=== PATIENT | female | born 1930 | race Caucasian/White ===

== ENCOUNTER 2018-04-27 11:57 | Inpatient (IN) ==
[2018-04-27 12:46] LABS: Basophils % 0.2 %; Eosinophils # 0.1 K/mcL (0.0-0.6); Eosinophils % 0.4 %; Hematocrit 35.8 % (35.3-44.9); Hemoglobin 11.7 g/dL (11.5-15.4); Immature Granulocytes % 0.4 % (0-4); Lymphocytes # 2.7 K/mcL (0.6-4.6); Lymphocytes % 19.9 %; Mean Corpuscular HGB Conc 32.7 g/dL (31.6-35.5); Mean Corpuscular Hemoglobin 30.2 pg (28.0-33.3); Mean Corpuscular Volume 92.5 fL (83.0-100.0); Mean Platelet Volume 11.4 fL (9.4-12.4); Monocytes # 1.4 K/mcL (0.0-1.3); Monocytes % 10.4 %; Neutrophils # 9.5 K/mcL (1.6-8.9); Platelet Count 373 K/mcL (140-400); Red Blood Count 3.87 M/mcL (3.82-4.97); Red Cell Distribution Width 14.6 % (11.5-14.5); Segmented Neutrophils % 68.7 %
[2018-04-27 12:47] LABS: Bilirubin,Urine Negative (Negative); Blood,Urine Small (Negative); Clarity,Urine Clear (Clear); Color,Urine Yellow (Yellow); Glucose,Urine (UA) Normal (Normal); Ketones,Urine Negative (Negative); Leukocyte Esterase,Urine Small (Negative); Nitrite,Urine Negative (Negative); PH,Urine 5.5 pH Units (5.0-8.0); Protein,Urine Negative (Neg-Trace); Specific Gravity,Urine 1.022 (1.010-1.025); Urobilinogen,Urine Normal (Normal)
[2018-04-27 12:53] LABS: INR 2.5; Prothrombin Time 27.2 Seconds (9.4-12.1)
[2018-04-27 12:53] LABS: Squamous Epithelial Cell,Urine Many per lpf (None-Few)
[2018-04-27 13:05] LABS: Potassium 4.6 mEq/L (3.5-5.1)
[2018-04-27 13:05] LABS: Bacteria,Urine Few per hpf (None-Few); Renal Epithelial Cells,Urine Few per hpf (None-Few); Transitional Epi Cells,Urine Few per hpf (None-Few)
[2018-04-27 13:06] LABS: Hyaline Casts,Urine Moderate per lpf (None-Few)
--- NOTE | 2018-04-27 13:17 | Emergency Department Note ---
Disposition Clinical Impression: Left hip pain, Intramuscular hematoma Disposition: Admitted As Inpatient Condition: Fair Referrals: Behzad Jurado MD [Primary Care Provider] - Forms: ED Satisfaction Letter Time of Disposition: 15:55 Fall HPI - General Chief Complaint: ED Fall Stated Complaint: Left Hip Pain Time Seen by Provider: 04/27/18 12:05 Source: EMS Mode of arrival: EMS Limitations: no limitations Nursing Notes Reviewed: Yes Vital Signs Reviewed: Yes - History of Present Illness HPI Narrative: Patient presents emergency room today by EMS for evaluation of left hip pain. Patient fell approximately one week ago and injured her left knee. Yesterday while she is walking going up and down stairs the patient started to have pain and discomfort in her left hip. She is on Coumadin secondary to other medical issues and does have bruising on her left buttock. She denies any other falls since the initial event. She has no other trauma or injury. Family says that she is acting appropriately and has not been complaining of anything other than the discomfort. Patient is otherwise stable they were just concerned because of the pain getting worse. Pt Subjective Complaint: fall Onset (ago): day(s) Fall From: standing Fall Witnessed: yes Place Fall Occurred: home Loss of Consciousness: none Prolonged Down Time?: no Symptoms Prior to Fall: none Context: tripped/slipped Location of injury: hip Location of injury - extremities: Left: knee Severity: mild Severity scale (1-10): 3 Quality: aching Associated symptoms (after fall): Reports: denies - Related Data Home Medications Medication Instructions Recorded Confirmed Albuterol Sulfate [Proair HFA] 2 puff IH Q4HR PRN 06/20/15 06/20/15 Aspirin Enteric Coated [Aspirin EC] 81 mg PO DAILY 06/20/15 06/20/15 Benzonatate 100 mg PO TID 06/20/15 06/20/15 Budesonide/Formoterol Fumarate 2 puff IH BID 06/20/15 06/20/15 [Symbicort 160-4.5 Mcg Inhaler] Ergocalciferol (VITAMIN D2) 50,000 unit PO QWEEK 06/20/15 06/20/15 [Drisdol] Fluticasone Propionate Nasal 2 spray NS AD 06/20/15 06/20/15 [Flonase] Furosemide [Lasix] 20 mg PO BID 06/20/15 06/20/15 Indomethacin 25 mg PO Q8H 06/20/15 06/20/15 Ipratropium/Albuterol Neb [Duoneb] 3 ml IH Q6HR 06/20/15 06/20/15 Lactose-Reduced Food [Ensure 237 ml PO BID 06/20/15 06/20/15 Liquid] Lisinopril [Zestril] 2.5 mg PO DAILY 06/20/15 06/20/15 Metoprolol [Lopressor] 25 mg PO BID 06/20/15 06/20/15 Roflumilast [Daliresp] 500 mcg PO DAILY 06/20/15 06/20/15 Sertraline HCl [Zoloft] 25 mg PO DAILY 06/20/15 06/20/15 Warfarin [Coumadin] 3 mg PO AD 06/20/15 06/20/15 Previous Rx's Medication Instructions Recorded HYDROcodone/Acet 5/325 mg [[place] 0.5 - 1 tab PO Q6H PRN #10 tab 06/04/17 5-325 mg] Ondansetron ODT [Zofran ODT] 4 mg SL Q8HR PRN #12 tab.rapdis 06/04/17 HYDROcodone/Acet 5/325 mg [[place] 1 tab PO Q6H PRN 3 Days #10 tab 04/18/18 5-325 mg] Allergies Allergy/AdvReac Type Severity Reaction Status Date / Time latex Allergy Rash Verified 06/19/15 22:45 Penicillins Allergy Hives Verified 06/19/15 14:31 All systems ED: reviewed and negative except as stated. Review of Systems: As Per HPI Constitutional: Denies: fever, chills, weakness Cardiovascular: Denies: chest pain, palpitations, dyspnea on exertion Respiratory: Denies: cough, dyspnea, wheezes Gastrointestinal: Denies: nausea, vomiting, diarrhea Genitourinary: Denies: urgency, dysuria, frequency Musculoskeletal: Denies: back pain, neck pain Integumentary: Reports: other. Denies: rash Neurological: Denies: headache Endocrine: Denies: fatigue Hematological/Lymphatic: Reports: easy bleeding, easy bruising Fall PMH - Past Medical History Medical history: Reports: arthritis, COPD, hypertension, other Surgical history: Reports: pacemaker/AICD Psychiatric history: Reports: no psych history ELEVATOR ADJUSTER history: Reports: no ELEVATOR ADJUSTER history - Social History Smoking Status: Unknown if ever smoked Alcohol use: Reports: none Drug use: Reports: none Physical Exam - General Limitations: no limitations General appearance: alert, in no apparent distress - Head Head exam: atraumatic, normocephalic, normal inspection - Eye Eye exam: Present: normal appearance, PERRL, EOMI - Neck Neck exam: Present: normal inspection, full ROM, trachea midline - Chest Chest inspection: Present: normal inspection, symmetric chest wall rise - Respiratory Respiratory exam: Present: normal lung sounds bilaterally - Cardiovascular Cardiovascular exam: Present: regular rate, normal rhythm, normal heart sounds - Abdominal Exam Abdominal exam: Present: soft, Non-Tender, normal bowel sounds. Absent: tenderness, distention, guarding, rebound, rigidity, Garcia's sign, Rovsing's sign, tenderness at McBurney's Point - Extremities Exam Extremities exam: Present: normal inspection, full ROM, tenderness, normal capillary refill. Absent: pedal edema - Expanded Lower Extremity Exam Hip/Pelvis exam: Present: normal inspection, full ROM - Back Exam Back exam: Present: normal inspection - Neurological Exam Neurological exam: Present: alert, oriented X3, CN II-XII intact - Skin Skin exam: Present: warm, dry, intact, normal color Course Course Narrative: Patient seen and examined the time of arrival. See history of present illness. 88-year-old female presents emergency room for evaluation of pain in her left hip. One week ago she fell while walking. Patient injured her left knee. She was seen here at that time and an x-ray completed that was unremarkable for acute bony abnormality. Patient has been doing well at home until yesterday when she got up to walk around the house and up and down some stairs with family. Since then she has had pain in her left buttock and hip. Patient did fall she thinks twice did not hit her head did not lose consciousness. She is on Coumadin. Patient denies any fevers or chills chest pain shortness of breath headache vision changes nausea vomiting or diarrhea. Her lungs are clear heart is regular her back is atraumatic with no signs of step-offs deformity injury or midline tenderness to cervical thoracic or lumbar spine. She has no gross abnormalities to the extremities with no signs of bruising trauma injury or deformity. Her pulses are intact she is alert she follows commands and does not appear to be in any distress. Her main complaint is left hip pain while ambulating. She does have a hematoma over the gluteal aspect of the left buttock. There is concern for possible intramuscular hematoma versus area of increased pressure and pain in the left hip secondary to the fall. Patient's hemoglobin will be checked today with a CBC chemistry panel urinalysis as well as CPK. Fluids pain medication will be provided. In the end of the evaluation patient will most likely end up with CT of the pelvis with IV contrast rule out intracompartmental hematoma versus fracture of the hip. Patient family informed of the projected course of care at this time. They are comfortable with this plan. No other acute issues noted this point. Physical exam is otherwise unremarkable and patient is only complaining of the left hip pain with no trauma since the original fall. - Reevaluation(s) Reevaluation #1: Patient's hemoglobin has dropped 2 g in comparison to her systolic number of 13. She is 11 today. Platelets appear to be stable she does have a slight white count neutrophilia. Her Coumadin and INR 2.5. She does have a slightly elevated BUNs with stable GFR and creatinine. Patient does not have any signs of urinary tract infection. Suspicion is that this time of the patient's BUNs elevated secondary to the breakdown the hematoma on the buttock. This also is the suspicion for the drop in hemoglobin. He will blood cell count neutrophilia could be reactionary symptom presentation secondary to the hematoma as well but we will address this with the further imaging modality. Fluids will be given and disposition to be determined. Patient is not requiring any pain medication this time. We offered and she declined. Time: 14:33 Reevaluation #2: CT imaging confirms a intramuscular hematoma. Went in to discuss the findings with the patient and the family and discuss disposition after I contacted the orthopedic physician concrete laborer. At this point the family says that she has resources in place at home including a walker and wheelchair but she is unable to take care of herself. There is a number of times throughout the day where she is alone and she has continued to have increased inability to ambulate and she ends up urinating on herself because of it. Patient family is more comfortable being admitted for observation until the symptoms get better at this point. Clinically there is no other acute pathology at this time that require surgical intervention. Patient does not have any acute signs of compartment syndrome but she does have some muscular deterioration secondary to the swelling. Hospitals will be contacted for admission and symptomatically control physical therapy and possible placement into a [facility]. Patient is accommodating to this option at this point. We will continue to monitor here until treatment course is established and completed. I discussed multiple times at the bedside with family that there is nothing that we would do from a surgical aspect or that required an admission Time: 15:55 Reevaluation #3: Hospitalist was contacted. Dr. Russell is aware that the patient does not require admission for surgical evaluation but does require admission from inability to ambulate secondary to pain and no availability of resources at home outside of a intermittent home health aide to help her. She will be admitted for evaluation possible placement continuation pain control if needed. Patient has not required pain medication on his law she is lying in the bed. Time: 16:44 Vital Signs Temperature 98.1 F 04/27/18 12:00 Pulse Rate 88 04/27/18 12:00 Respiratory Rate 20 04/27/18 12:00 Blood Pressure 108/66 04/27/18 12:00 O2 Sat by Pulse Oximetry 95 04/27/18 12:00 Temperature 98.1 F 04/27/18 12:00 Pulse Rate 88 04/27/18 12:00 Respiratory Rate 20 04/27/18 12:00 Blood Pressure 108/66 04/27/18 12:00 O2 Sat by Pulse Oximetry 95 04/27/18 12:00 Oxygen Delivery Oxygen Delivery Room Air Fall - MDM Narrative Medical decision making narrative: Left hip pain - Medical Records Medical records reviewed: Yes I reviewed the patient's medical records. - Lab Data Lab results reviewed: Yes I reviewed the patient's lab results. Result diagrams: 04/27/18 12:19 04/27/18 12:19 Lab Results 04/27/18 04/27/18 04/27/18 Range/Units 12:19 12:19 12:19 WBC 13.8 H (4.3-11.1) K/mcL RBC 3.87 (3.82-4.97) M/mcL Hgb 11.7 (11.5-15.4) g/dL Hct 35.8 (35.3-44.9) % MCV 92.5 (83.0-100.0) fL MCH 30.2 (28.0-33.3) pg MCHC 32.7 (31.6-35.5) g/dL RDW 14.6 H (11.5-14.5) % Plt Count 373 (140-400) K/mcL MPV 11.4 (9.4-12.4) fL Immature Gran % 0.4 (0-4) % Seg Neutrophils % 68.7 % Lymphocytes % 19.9 % Monocytes % 10.4 % Eosinophils % 0.4 % Basophils % 0.2 % Neutrophils # 9.5 H (1.6-8.9) K/mcL Lymphocytes # 2.7 (0.6-4.6) K/mcL Monocytes # 1.4 H (0.0-1.3) K/mcL Eosinophils # 0.1 (0.0-0.6) K/mcL Basophils # 0.0 (0.0-0.2) K/mcL PT 27.2 H (9.4-12.1) Seconds INR 2.5 Sodium 137 (136-145) mEq/L Potassium 4.6 (3.5-5.1) mEq/L Chloride 105 (98-107) mEq/L Carbon Dioxide 28 (23-29) mEq/L BUN 24 H (8-23) mg/dL Creatinine 1.07 (0.60-1.20) mg/dL Est GFR ( Amer) 59 L (> 60) Est GFR (Non-Af Amer) 49 L (> 60) BUN/Creatinine Ratio 22 (6-26) Glucose 103 (70-105) mg/dL Calculated Osmolality 288 (280-300) Calcium 10.0 (8.6-10.3) mg/dL Creatine Kinase 275 H (30-223) Units/L Urine Color (Yellow) Urine Clarity (Clear) Urine pH (5.0-8.0) pH Units Ur Specific [place] (1.010-1.025) Urine Protein (Neg-Trace) mg/dL Urine Glucose (UA) (Normal) mg/dL Urine Ketones (Negative) mg/dL Urine Blood (Negative) Urine Nitrite (Negative) Urine Bilirubin (Negative) Urine Urobilinogen (Normal) mg/dL Ur Leukocyte Esterase (Negative) Urine Microscopic RBC (0-3) per hpf Urine Microscopic WBC (0-3) per hpf Ur Squamous Epith Cells (None-Few) per lpf Ur Transition Epith Cell (None-Few) per hpf Ur Renal Epithelial Cell (None-Few) per hpf Urine Bacteria (None-Few) per hpf Hyaline Casts (None-Few) per lpf Ur Culture Indicated? (NO) 04/27/18 Range/Units 12:38 WBC (4.3-11.1) K/mcL RBC (3.82-4.97) M/mcL Hgb (11.5-15.4) g/dL Hct (35.3-44.9) % MCV (83.0-100.0) fL MCH (28.0-33.3) pg MCHC (31.6-35.5) g/dL RDW (11.5-14.5) % Plt Count (140-400) K/mcL MPV (9.4-12.4) fL Immature Gran % (0-4) % Seg Neutrophils % % Lymphocytes % % Monocytes % % Eosinophils % % Basophils % % Neutrophils # (1.6-8.9) K/mcL Lymphocytes # (0.6-4.6) K/mcL Monocytes # (0.0-1.3) K/mcL Eosinophils # (0.0-0.6) K/mcL Basophils # (0.0-0.2) K/mcL PT (9.4-12.1) Seconds INR Sodium (136-145) mEq/L Potassium (3.5-5.1) mEq/L Chloride (98-107) mEq/L Carbon Dioxide (23-29) mEq/L BUN (8-23) mg/dL Creatinine (0.60-1.20) mg/dL Est GFR ( Amer) (> 60) Est GFR (Non-Af Amer) (> 60) BUN/Creatinine Ratio (6-26) Glucose (70-105) mg/dL Calculated Osmolality (280-300) Calcium (8.6-10.3) mg/dL Creatine Kinase (30-223) Units/L Urine Color Yellow (Yellow) Urine Clarity Clear (Clear) Urine pH 5.5 (5.0-8.0) pH Units Ur Specific [place] 1.022 (1.010-1.025) Urine Protein Negative (Neg-Trace) mg/dL Urine Glucose (UA) Normal (Normal) mg/dL Urine Ketones Negative (Negative) mg/dL Urine Blood Small H (Negative) Urine Nitrite Negative (Negative) Urine Bilirubin Negative (Negative) Urine Urobilinogen Normal (Normal) mg/dL Ur Leukocyte Esterase Small H (Negative) Urine Microscopic RBC 3-5 H (0-3) per hpf Urine Microscopic WBC 3-5 H (0-3) per hpf Ur Squamous Epith Cells Many H (None-Few) per lpf Ur Transition Epith Cell Few (None-Few) per hpf Ur Renal Epithelial Cell Few (None-Few) per hpf Urine Bacteria Few (None-Few) per hpf Hyaline Casts Moderate H (None-Few) per lpf Ur Culture Indicated? NO. A (NO) - Radiology Data Radiology results reviewed: Yes I reviewed the patient's radiology results. Patient found to have intramuscular hematoma possible iliopsoas tear. No other acute abnormalities or bony injuries noted at this time.
[2018-04-27] MEDS ORDERED: Isovue-370 500 ML INFUS..BTL IV ONE (13:30)
--- NOTE | 2018-04-27 17:21 | Internal Med History&Physical ---
Date of Encounter: 04/27/18 Time of Encounter: 17:17 Internal Medicine - H&P: HPI Chief complaint: fall History of present illness: Ms. Clemens is a 88 year old female with a history of COPD, CAD, CHF status post pacer , P. A. fib on Coumadin who presents with recurrent falls and failure to thrive at home. She lives at home with her grandson who is unable to take care of her. At baseline she is independent and uses a cane and a walker. She presents due to recurrent falls. Most recently she had a fall 2 Fridays ago when she fell on a concrete step. She then had another fall in the bathroom on Sunday with hip trauma. Due to her recurrent falls and muscular skeletal injury to include hematoma and iliopsoas muscle tear she is bedbound and is nonmobile due to his pain symptoms. Because of this she has not been getting out of bed and has been urinating on herself. FINDINGS: Multiplanar imaging of the osseous pelvis demonstrates no acute fracture or dislocation. 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 There is degenerative change within the lower lumbar spine. Evaluation of the soft tissue structures demonstrates that there is abnormal thickening and irregularity of the distal left ileo psoas muscle, which may be acutely to torn. There is also a large approximate 6.7 x 4.5 cm intramuscular hematoma adjacent to the left pectineus and adductor muscles. There is mild subcutaneous edema within the left thigh. Evaluation of the intrapelvic contents demonstrates that the visualized bowel is unremarkable, without evidence of acute inflammatory change or obstruction. There is colonic diverticulosis. There is a gallstone within the gallbladder. The visualized portion of the liver is unremarkable. There is a stable small 10 mm cyst within the left kidney lower pole. There is a stable small 8 mm cyst within the right kidney lower pole. The remainder of the visualized solid organs are unremarkable. No intraperitoneal free air or free fluid is identified. No pathologic lymphadenopathy is seen. The urinary bladder is collapsed, though otherwise unremarkable. The uterus and bilateral adnexa are unremarkable. CT/CT pelvis w iv no oral IMPRESSION: 1. No acute fracture of the osseous pelvis. No acute fracture or dislocation of the left hip 2. Large suspected intramuscular hematoma at the interface of the left pectineus and left adductor muscles. Additionally, there is irregularity and stranding of the distal left iliopsoas muscle, which is possibly torn. This could be further evaluated with a dedicated left hip MRI. 3. No acute abnormality of the lower abdominal and pelvic viscera. 4. Cholelithiasis. Past Med Surg Social Fam HX - Past Medical History Medical history: arthritis, COPD, hypertension, other Additional medical history: CKD stage 3 Psychiatric history: no psych history - Past Surgical History Surgical History: pacemaker/AICD Additional surgical history: SPLEEN REMOVED - Social History Smoking Status: Unknown if ever smoked Smokeless Tobacco Status: No Alcohol use: none Drug use: none - Family History Mother Hx Family Cardiac Disorders: Yes Internal Medicine - H&P: Meds Albuterol Sulfate [Proair HFA] 2 puff IH Q4HR PRN 06/20/15 [History] Aspirin Enteric Coated [Aspirin EC] 81 mg PO DAILY 06/20/15 [History] Benzonatate 100 mg PO TID 06/20/15 [History] Budesonide/Formoterol Fumarate [Symbicort 160-4.5 Mcg Inhaler] 2 puff IH BID 07/27 [History] Ergocalciferol (VITAMIN D2) [Drisdol] 50,000 unit PO QWEEK 06/20/15 [History] Fluticasone Propionate Nasal [Flonase] 2 spray NS AD 06/20/15 [History] Furosemide [Lasix] 20 mg PO BID 06/20/15 [History] Indomethacin 25 mg PO Q8H 06/20/15 [History] Ipratropium/Albuterol Neb [Duoneb] 3 ml IH Q6HR 06/20/15 [History] Lactose-Reduced Food [Ensure Liquid] 237 ml PO BID 06/20/15 [History] Lisinopril [Zestril] 2.5 mg PO DAILY 06/20/15 [History] Metoprolol [Lopressor] 25 mg PO BID 06/20/15 [History] Roflumilast [Daliresp] 500 mcg PO DAILY 06/20/15 [History] Sertraline HCl [Zoloft] 25 mg PO DAILY 06/20/15 [History] Warfarin [Coumadin] 3 mg PO AD 06/20/15 [History] HYDROcodone/Acet 5/325 mg [[place] 5-325 mg] 0.5 - 1 tab PO Q6H PRN #10 tab [Rx] Ondansetron ODT [Zofran ODT] 4 mg SL Q8HR PRN #12 tab.rapdis 06/04/17 [Rx] HYDROcodone/Acet 5/325 mg [[place] 5-325 mg] 1 tab PO Q6H PRN 3 Days #10 tab 04/18 [Rx] 3 Allergy/AdvReac Type Severity Reaction Status Date / Time latex Allergy Rash Verified 06/19/15 22:45 Penicillins Allergy Hives Verified 06/19/15 14:31 All Systems PM: A 10-system review of systems was performed and is negative for pertinent findings except as documented above in the HPI. Review of systems: ROS 14 point review of systems reviewed as best as possible given presentation. Pertinent positive or negative as per HPI or otherwise reviewed as negative - Constitutional Vitals: Temp Pulse Resp BP Pulse Ox 98.1 F 88 20 108/66 95 04/27/18 12:00 04/27/18 12:00 04/27/18 12:00 04/27/18 12:00 04/27/18 12:00 Exam: General - AAO x 3 Psych - Appropriate affect/speech. No agitation Eyes - PATRICIO. Eye lids intact. No scleral icterus Neuro - No gross peripheral or central neuro deficits on inspection Heart - Sinus. RRR. S1 and S2 present. No added HS/murmurs appreciated. No elevated JVD appreciated. Lung - Adequate air entry b/l, No crackles/wheezes appreciated GI - Soft, non-tender. No hepatosplenomegaly/ascites. BS+ - No CVA/suprapubic tenderness or palpable bladder distension MSK - some pain on range of motion of left leg Internal Med - H&P Results - Labs CBC & Chem 7: 04/27/18 12:19 04/27/18 12:19 Labs: Short CBC 04/27/18 Range/Units 12:19 WBC 13.8 H (4.3-11.1) K/mcL Hgb 11.7 (11.5-15.4) g/dL Hct 35.8 (35.3-44.9) % Plt Count 373 (140-400) K/mcL Neutrophils # 9.5 H (1.6-8.9) K/mcL BMP 04/27/18 12:19 Sodium 137 Potassium 4.6 Chloride 105 Carbon Dioxide 28 BUN 24 H Creatinine 1.07 Glucose 103 Calcium 10.0 Urine 04/27/18 Range/Units 12:38 Urine Color Yellow (Yellow) Urine Clarity Clear (Clear) Urine pH 5.5 (5.0-8.0) pH Units Ur Specific [place] 1.022 (1.010-1.025) Urine Protein Negative (Neg-Trace) mg/dL Urine Glucose (UA) Normal (Normal) mg/dL - Impressions ITS Impressions Pelvis CT 04/27/18 13:30 IMPRESSION: 1. No acute fracture of the osseous pelvis. No acute fracture or dislocation of the left hip 2. Large suspected intramuscular hematoma at the interface of the left pectineus and left adductor muscles. Additionally, there is irregularity and stranding of the distal left iliopsoas muscle, which is possibly torn. This could be further evaluated with a dedicated left hip MRI. 3. No acute abnormality of the lower abdominal and pelvic viscera. 4. Cholelithiasis. D/ / 04/27/2018 15:31:36 Ronnie Girard MD / yer Interpreting Provider: Ronnie Girard MD - Assessment and plan (1) Debility Current Visit: Yes Status: Acute Assessment and plan: age related with recurrent fall PT/OT for placement- rehab needed (2) Muscle tear Current Visit: Yes Status: Acute Assessment and plan: conservative management PT/OT for placement- rehab needed (3) Intramuscular hematoma Current Visit: Yes Status: Acute Assessment and plan: hold coumadin trend H&H vitamin K to correct INR (4) Atrial fibrillation Current Visit: No Status: Chronic Assessment and plan: hold warfarin due to hematoma Qualifiers: Atrial fibrillation type: paroxysmal Qualified Code(s): I48.0 - Paroxysmal atrial fibrillation (5) Cardiomyopathy Current Visit: No Status: Chronic Assessment and plan: continue lasix, cardiac med Qualifiers: Cardiomyopathy type: other Qualified Code(s): I42.8 - Other cardiomyopathies (6) COPD (chronic obstructive pulmonary disease) Current Visit: Yes Status: Acute Assessment and plan: chronic . stable Qualifiers: Emphysema type: other Qualified Code(s): J43.8 - Other emphysema - Time Spent With Patient Total time spent is greater than 50% in coordination of care (as documented) at patient's floor/unit and/or counseling patient:
[2018-04-27] MEDS ORDERED: *HR* Phytonadione 5 MG TABLET PO ONE (17:27)
[2018-04-27] MEDS ORDERED: Naloxone 0.4 MG/ML INJ IVP PRN (17:28)
[2018-04-27] MEDS: Budesonide/Formoterol 160/4.5 MDI IH SCH (21:06)
[2018-04-27] MEDS: *HR* HYDROcodone/Acet 5/325 mg TABLET PO PRN (22:15)
[2018-04-28] MEDS: Furosemide 20 MG TABLET PO SCH ×2 (00:49→11:25)
[2018-04-28 02:20] LABS: Basophils % 0.2 %; Eosinophils # 0.1 K/mcL (0.0-0.6); Eosinophils % 1.1 %; Hematocrit 35.2 % (35.3-44.9); Hemoglobin 11.8 g/dL (11.5-15.4); Immature Granulocytes % 0.2 % (0-4); Lymphocytes % 32.8 %; Mean Corpuscular HGB Conc 33.5 g/dL (31.6-35.5); Mean Corpuscular Hemoglobin 30.8 pg (28.0-33.3); Mean Corpuscular Volume 91.9 fL (83.0-100.0); Mean Platelet Volume 11.8 fL (9.4-12.4); Monocytes # 1.1 K/mcL (0.0-1.3); Monocytes % 9.3 %; Neutrophils # 6.8 K/mcL (1.6-8.9); Platelet Count 389 K/mcL (140-400); Red Blood Count 3.83 M/mcL (3.82-4.97); Red Cell Distribution Width 14.4 % (11.5-14.5); Segmented Neutrophils % 56.4 %
[2018-04-28 02:35] LABS: BUN/Creatinine Ratio 21 (6-26); Blood Urea Nitrogen 20 mg/dL (8-23); Calcium 9.7 mg/dL (8.6-10.3); Carbon Dioxide 26 mEq/L (23-29); Chloride 105 mEq/L (98-107); Glucose 111 mg/dL (70-105); Osmolality,Calculated 289 (280-300); Potassium 4.2 mEq/L (3.5-5.1); Sodium 138 mEq/L (136-145); eGFR For African Americans > 60 (> 60); eGFR For Non-African Americans 56 (> 60)
[2018-04-28] MEDS: Budesonide/Formoterol 160/4.5 MDI IH SCH ×2 (07:49→20:50)
--- NOTE | 2018-04-28 08:05 | Orthopedic Consult Note ---
Date of Encounter: 04/28/18 Time of Encounter: 08:04 History of Present Illness HPI: Ms. Clemens is a 88 year old female History of fall on Coumadin with right hip side pain patient with soft tissue trauma CT results reviewed no surgical intervention necessary treat for pain control weightbearing as tolerated Patient seen this morning getting out of bed with nurses minimal discomfort. Past Med Surg Social Fam HX - Past Medical History Medical history: arthritis, cancer, COPD, hypertension, myocardial infarction, TIA, other Additional medical history: CKD stage 3 Psychiatric history: no psych history - Past Surgical History Surgical History: pacemaker/AICD Additional surgical history: SPLEEN REMOVED - Social History Smoking Status: Unknown if ever smoked Smokeless Tobacco Status: No Alcohol use: none Drug use: none - Family History Mother Hx Family Cardiac Disorders: Yes Medications and Allergies Albuterol Sulfate [Proair HFA] 2 puff IH Q4HR PRN 06/20/15 [History] Aspirin Enteric Coated [Aspirin EC] 81 mg PO DAILY 06/20/15 [History] Benzonatate 100 mg PO TID 06/20/15 [History] Budesonide/Formoterol Fumarate [Symbicort 160-4.5 Mcg Inhaler] 2 puff IH BID 07/27 [History] Ergocalciferol (VITAMIN D2) [Drisdol] 50,000 unit PO QWEEK 06/20/15 [History] Fluticasone Propionate Nasal [Flonase] 2 spray NS AD 06/20/15 [History] Furosemide [Lasix] 20 mg PO BID 06/20/15 [History] Indomethacin 25 mg PO Q8H 06/20/15 [History] Ipratropium/Albuterol Neb [Duoneb] 3 ml IH Q6HR 06/20/15 [History] Lactose-Reduced Food [Ensure Liquid] 237 ml PO BID 06/20/15 [History] Lisinopril [Zestril] 2.5 mg PO DAILY 06/20/15 [History] Metoprolol [Lopressor] 25 mg PO BID 06/20/15 [History] Roflumilast [Daliresp] 500 mcg PO DAILY 06/20/15 [History] Sertraline HCl [Zoloft] 25 mg PO DAILY 06/20/15 [History] Warfarin [Coumadin] 3 mg PO AD 06/20/15 [History] HYDROcodone/Acet 5/325 mg [[place] 5-325 mg] 0.5 - 1 tab PO Q6H PRN #10 tab [Rx] Ondansetron ODT [Zofran ODT] 4 mg SL Q8HR PRN #12 tab.rapdis 06/04/17 [Rx] HYDROcodone/Acet 5/325 mg [[place] 5-325 mg] 1 tab PO Q6H PRN 3 Days #10 tab 04/18 [Rx] 3 Allergy/AdvReac Type Severity Reaction Status Date / Time latex Allergy Rash Verified 06/19/15 22:45 Penicillins Allergy Hives Verified 06/19/15 14:31 All Systems Reviewed: The remainder of the systems were reviewed and are negative Physical Exam - Constitutional Vitals: Temp Pulse Resp BP Pulse Ox 98.0 F 77 17 110/71 99 04/28/18 07:26 04/28/18 07:26 04/28/18 07:26 04/28/18 07:26 04/28/18 07:26 Results - Labs Result Diagrams: 04/28/18 01:55 04/28/18 01:55 Labs: Abnormal lab results WBC 12.1 K/mcL (4.3-11.1) H 04/28/18 01:55 Hct 35.2 % (35.3-44.9) L 04/28/18 01:55 PT 27.2 Seconds (9.4-12.1) H 04/27/18 12:19 Est GFR (Non-Af Amer) 56 (> 60) L 04/28/18 01:55 Glucose 111 mg/dL (70-105) H 04/28/18 01:55 Creatine Kinase 275 Units/L (30-223) H 04/27/18 12:19 Urine Blood Small (Negative) H 04/27/18 12:38 Ur Leukocyte Esterase Small (Negative) H 04/27/18 12:38 Urine Microscopic RBC 3-5 per hpf (0-3) H 04/27/18 12:38 Urine Microscopic WBC 3-5 per hpf (0-3) H 04/27/18 12:38 Ur Squamous Epith Cells Many per lpf (None-Few) H 04/27/18 12:38 Hyaline Casts Moderate per lpf (None-Few) H 04/27/18 12:38 Ur Culture Indicated? NO. (NO) A 04/27/18 12:38 H & H 04/28/18 Range/Units 01:55 Hgb 11.8 (11.5-15.4) g/dL Hct 35.2 L (35.3-44.9) % All other labs normal. Consult Discharge Plan - Plan Referrals: Behzad Jurado MD [Primary Care Provider] -
[2018-04-28] MEDS: Aspirin Enteric Coated 81 MG Tablet PO SCH (11:24)
[2018-04-28] MEDS: (Roflumilast [Daliresp] 500 MCG) PO SCH (11:30)
[2018-04-28] MEDS ORDERED: 0.9 % Sodium Chloride 1,000 ML IVC SCH (13:15)
[2018-04-28 13:28] LABS: Basophils % 0.3 %; Eosinophils # 0.2 K/mcL (0.0-0.6); Eosinophils % 1.4 %; Hematocrit 36.5 % (35.3-44.9); Hemoglobin 12.1 g/dL (11.5-15.4); Immature Granulocytes % 0.3 % (0-4); Lymphocytes # 3.3 K/mcL (0.6-4.6); Lymphocytes % 30.6 %; Mean Corpuscular HGB Conc 33.2 g/dL (31.6-35.5); Mean Corpuscular Hemoglobin 30.8 pg (28.0-33.3); Mean Corpuscular Volume 92.9 fL (83.0-100.0); Mean Platelet Volume 11.2 fL (9.4-12.4); Monocytes # 0.8 K/mcL (0.0-1.3); Monocytes % 7.6 %; Neutrophils # 6.5 K/mcL (1.6-8.9); Platelet Count 406 K/mcL (140-400); Red Blood Count 3.93 M/mcL (3.82-4.97); Red Cell Distribution Width 14.6 % (11.5-14.5); Segmented Neutrophils % 59.8 %
[2018-04-28 13:36] LABS: INR 1.5; Prothrombin Time 16.4 Seconds (9.4-12.1)
[2018-04-28 13:44] LABS: Calcium 10.2 mg/dL (8.6-10.3); Magnesium 2.1 mg/dL (1.6-2.6); Potassium 4.3 mEq/L (3.5-5.1)
--- NOTE | 2018-04-28 13:44 | Internal Med Progress Note ---
Date of Encounter: 04/28/18 Time of Encounter: 13:41 - Assessment and plan (1) Intramuscular hematoma Current Visit: Yes Status: Acute Assessment and plan: hold coumadin trend H&H so far stable Hb @ 11.8 just repeated lab Hb @ 12.1 PT / INR 1.5 Already received vitamin K Patient does need to stay in the hospital more than 2 midnights due to her complex medical problems and close monitoring her labs due to Coumadin. So we will change her to full admission today. I did review my colleague Dr. Mancilla's H & P including HPI, PMH, PSH, FH, SH, and ROS no changes noticed (2) Muscle tear Current Visit: Yes Status: Acute Assessment and plan: conservative management Ortho evaluated the pt, did not recommend any surgical interventions now PT/OT for placement- rehab needed (3) Atrial fibrillation Current Visit: No Status: Chronic Assessment and plan: Paroxymal Afib rate controlled with Metoprolol Held warfarin due to hematoma She is not a best and sefest candidate for anti coagulation with Coumadin with her multiple falls. Will talk to the family about d/c Coumadin further. Qualifiers: Atrial fibrillation type: paroxysmal Qualified Code(s): I48.0 - Paroxysmal atrial fibrillation (4) Cardiomyopathy Current Visit: No Status: Chronic Assessment and plan: resumed all home meds Qualifiers: Cardiomyopathy type: other Qualified Code(s): I42.8 - Other cardiomyopathies (5) COPD (chronic obstructive pulmonary disease) Current Visit: Yes Status: Acute Assessment and plan: chroni Not in exacerbation stable and will continue home INH regimen Qualifiers: Emphysema type: other Qualified Code(s): J43.8 - Other emphysema (6) Debility Current Visit: Yes Status: Acute Assessment and plan: age related with recurrent fall PT/OT for placement- rehab needed (7) Protein-calorie malnutrition, severe Current Visit: Yes Status: Acute Assessment and plan: concerning for severe PCM will check pre albumin levels [employer] consulted. - Time Spent With Patient Total time spent is greater than 50% in coordination of care (as documented) at patient's floor/unit and/or counseling patient: - Subjective Interval history: Ms. Clemens is a 88 year old female with a history of COPD, CAD, CHF status post pacer , P. A. fib on Coumadin who presents with recurrent falls and failure to thrive at home. She had a fall at home since then pt is c/o hip pain. Her Ct of Pelvis showed no acute fracture, however she does have a lot suspected intramuscular hematoma at the interface of the left piecteneus and the left adductor muscles. Pt is alert, awake and O x3. denied any CP / SOB. Hip pain is tolerable with meds. Talked to the pt's daughter at bed side. - Constitutional Vitals: Temp Pulse Resp BP Pulse Ox 98.5 F 93 18 112/66 98 04/28/18 11:50 04/28/18 11:50 04/28/18 11:50 04/28/18 11:50 04/28/18 11:50 General appearance: Present: A&O X 3, no acute distress, answers questions appropriately - Head Head exam: Present: atraumatic, normal inspection - Neck Neck exam general surgery: Present: supple - Respiratory Respiratory exam: Present: decreased breath sounds. Absent: rales, respiratory distress, rhonchi, wheezes - Cardiovascular Cardiovascular exam: Present: RRR, +S1, +S2. Absent: tachycardia - GI/Abdominal GI/Abdominal exam: Present: normal bowel sounds, soft. Absent: rebound, rigid, tenderness - Extremities Exam Extremities exam: Present: tenderness (moderate tenderness at left leg). Absent : calf tenderness, pedal edema - Back Exam Back exam: Absent: CVA tenderness (L), CVA tenderness (R) - Neurological Exam Neurological exam: Present: alert, oriented X3 - Psychiatric Psychiatric exam: Present: normal affect, normal mood - Skin Skin exam: Absent: rash Internal Medicine: Result - Labs CBC & Chem 7: 04/28/18 13:15 04/28/18 01:55 Labs: Short CBC 04/28/18 04/28/18 Range/Units 01:55 13:15 WBC 12.1 H 10.8 (4.3-11.1) K/mcL Hgb 11.8 12.1 (11.5-15.4) g/dL Hct 35.2 L 36.5 (35.3-44.9) % Plt Count 389 406 H (140-400) K/mcL Neutrophils # 6.8 6.5 (1.6-8.9) K/mcL BMP 04/28/18 01:55 Sodium 138 Potassium 4.2 Chloride 105 Carbon Dioxide 26 BUN 20 Creatinine 0.95 Glucose 111 H Calcium 9.7 - ABG Interpretation ABG results: PT/INR, D-dimer PT 16.4 Seconds (9.4-12.1) H 04/28/18 13:15 - VTE Documentation of Mechanical Device: Intermittent pneumatic compression device Consult Discharge Plan - Plan Referrals: Behzad Jurado MD [Primary Care Provider] -
[2018-04-29] MEDS: *HR* HYDROcodone/Acet 5/325 mg TABLET PO PRN (00:03)
[2018-04-29 01:24] LABS: Basophils # 0.1 K/mcL (0.0-0.2); Basophils % 0.5 %; Eosinophils # 0.3 K/mcL (0.0-0.6); Eosinophils % 2.3 %; Hematocrit 32.8 % (35.3-44.9); Hemoglobin 10.7 g/dL (11.5-15.4); Immature Granulocytes % 0.5 % (0-4); Lymphocytes # 3.8 K/mcL (0.6-4.6); Lymphocytes % 34.6 %; Mean Corpuscular HGB Conc 32.6 g/dL (31.6-35.5); Mean Corpuscular Hemoglobin 30.4 pg (28.0-33.3); Mean Corpuscular Volume 93.2 fL (83.0-100.0); Mean Platelet Volume 11.5 fL (9.4-12.4); Monocytes % 9.1 %; Neutrophils # 5.9 K/mcL (1.6-8.9); Platelet Count 409 K/mcL (140-400); Red Blood Count 3.52 M/mcL (3.82-4.97); Red Cell Distribution Width 14.6 % (11.5-14.5)
[2018-04-29 01:25] LABS: INR 1.1; Prothrombin Time 12.2 Seconds (9.4-12.1)
[2018-04-29 01:32] LABS: Calcium 9.6 mg/dL (8.6-10.3); Potassium 4.2 mEq/L (3.5-5.1)
[2018-04-29] MEDS: (Roflumilast [Daliresp] 500 MCG) PO SCH (08:34)
[2018-04-29] MEDS: Aspirin Enteric Coated 81 MG Tablet PO SCH (08:34)
[2018-04-29] MEDS: Budesonide/Formoterol 160/4.5 MDI IH SCH ×2 (09:54→20:03)
--- NOTE | 2018-04-29 11:33 | Internal Med Progress Note ---
<Moncho Reddy - Last Filed: 04/29/18 12:38> Date of Encounter: 04/29/18 Time of Encounter: 09:05 - Assessment and plan (1) Atrial fibrillation Current Visit: No Status: Chronic Assessment and plan: Paroxymal Afib rate controlled with Metoprolol Held warfarin due to hematoma She is not a good/safe candidate for anti coagulation with Coumadin with her multiple falls. Plan to discontinue and have patient follow up with PCP. Risk of discontinuation discussed with patient and family by attending. Qualifiers: Atrial fibrillation type: paroxysmal Qualified Code(s): I48.0 - Paroxysmal atrial fibrillation (2) Cardiomyopathy Current Visit: No Status: Chronic Assessment and plan: resumed all home meds Qualifiers: Cardiomyopathy type: other Qualified Code(s): I42.8 - Other cardiomyopathies (3) Intramuscular hematoma Current Visit: Yes Status: Acute Assessment and plan: hold coumadin-plan to discontinue trend H&H so far stable Hb @ 10.7 PT / INR 1.1 Already received vitamin K during admission Patient does need to stay in the hospital more than 2 midnights due to her complex medical problems and close monitoring her labs due to Coumadin. (4) COPD (chronic obstructive pulmonary disease) Current Visit: Yes Status: Acute Assessment and plan: chronic Not in exacerbation continue supplemental oxygen as needed stable and will continue home INH regimen Qualifiers: COPD type: unspecified COPD Qualified Code(s): J44.9 - Chronic obstructive pulmonary disease, unspecified (5) Muscle tear Current Visit: Yes Status: Acute Assessment and plan: conservative management Ortho evaluated the pt, did not recommend any surgical interventions now PT/OT for placement- rehab needed (6) Debility Current Visit: Yes Status: Acute Assessment and plan: age related with recurrent fall PT/OT for placement- rehab needed (7) Protein-calorie malnutrition, severe Current Visit: Yes Status: Acute Assessment and plan: concerning for severe PCM pre albumin low at 13.1 Controls Designer consulted. - Time Spent With Patient Total time spent is greater than 50% in coordination of care (as documented) at patient's floor/unit and/or counseling patient: - Subjective Interval history: Patient seen and examined sitting in bedside chair. Therapy initially was working with patient. No acute distress. Ms. Clemens notes that her inner L thigh is tender with movement but that it continues to improve daily. No chest pain, shortness of breath, nausea, or vomiting. - Constitutional Vitals: Temp Pulse Resp BP Pulse Ox 97.6 F 86 17 120/72 100 04/29/18 11:07 04/29/18 11:07 04/29/18 11:07 04/29/18 11:07 04/29/18 11:07 General appearance: Present: cooperative, A&O X 3, no acute distress, answers questions appropriately - Head Head exam: Present: atraumatic, normal inspection, normocephalic - Eye Eye exam: Present: sclera anicteric - ENT ENT exam: Present: mucous membranes moist - Neck Neck exam general surgery: Present: normal inspection, supple - Respiratory Respiratory exam: Present: CTAB. Absent: respiratory distress, rhonchi, stridor , wheezes - Cardiovascular Cardiovascular exam: Present: irregular rhythm. Absent: diastolic murmur, gallop, rubs, systolic murmur - GI/Abdominal GI/Abdominal exam: Present: normal bowel sounds, soft. Absent: guarding, tenderness - Extremities Exam Extremities exam: Present: tenderness (moderate tenderness to L thigh), warm. Absent: cyanotic, pedal edema - Neurological Exam Neurological exam: Present: alert, oriented X3, no focal deficits. Absent: speech deficit - Psychiatric Psychiatric exam: Present: normal affect, normal mood - Skin Skin exam: Present: dry, intact, warm Additional comments: bruising focused to L thigh Internal Medicine: Result - Labs CBC & Chem 7: 04/29/18 00:51 04/29/18 00:51 Labs: Short CBC 04/29/18 Range/Units 00:51 WBC 11.1 (4.3-11.1) K/mcL Hgb 10.7 L (11.5-15.4) g/dL Hct 32.8 L (35.3-44.9) % Plt Count 409 H (140-400) K/mcL Neutrophils # 5.9 (1.6-8.9) K/mcL BMP 04/29/18 00:51 Sodium 137 Potassium 4.2 Chloride 108 H Carbon Dioxide 24 BUN 24 H Creatinine 1.09 Glucose 124 H Calcium 9.6 - ABG Interpretation ABG results: PT/INR, D-dimer PT 12.2 Seconds (9.4-12.1) H 04/29/18 00:51 - VTE Documentation of Mechanical Device: Intermittent pneumatic compression device Consult Discharge Plan - Plan Referrals: Behzad Jurado MD [Primary Care Provider] - <FidencioShaista ruiz - Last Filed: 04/29/18 18:09> Date of Encounter: 04/29/18 - Assessment and plan (1) Atrial fibrillation Current Visit: No Status: Chronic Qualifiers: Atrial fibrillation type: paroxysmal Qualified Code(s): I48.0 - Paroxysmal atrial fibrillation (2) Cardiomyopathy Current Visit: No Status: Chronic Qualifiers: Cardiomyopathy type: other Qualified Code(s): I42.8 - Other cardiomyopathies (3) Intramuscular hematoma Current Visit: Yes Status: Acute (4) COPD (chronic obstructive pulmonary disease) Current Visit: Yes Status: Acute Qualifiers: COPD type: unspecified COPD Qualified Code(s): J44.9 - Chronic obstructive pulmonary disease, unspecified (5) Muscle tear Current Visit: Yes Status: Acute (6) Debility Current Visit: Yes Status: Acute (7) Protein-calorie malnutrition, severe Current Visit: Yes Status: Acute - Time Spent With Patient Total time spent is greater than 50% in coordination of care (as documented) at patient's floor/unit and/or counseling patient: - Constitutional Vitals: Temp Pulse Resp BP Pulse Ox 98.0 F 83 17 93/46 96 04/29/18 16:08 04/29/18 16:08 04/29/18 16:08 04/29/18 16:08 04/29/18 16:08 Internal Medicine: Result - Labs CBC & Chem 7: 04/29/18 00:51 04/29/18 00:51 Labs: Short CBC 04/29/18 Range/Units 00:51 WBC 11.1 (4.3-11.1) K/mcL Hgb 10.7 L (11.5-15.4) g/dL Hct 32.8 L (35.3-44.9) % Plt Count 409 H (140-400) K/mcL Neutrophils # 5.9 (1.6-8.9) K/mcL BMP 04/29/18 00:51 Sodium 137 Potassium 4.2 Chloride 108 H Carbon Dioxide 24 BUN 24 H Creatinine 1.09 Glucose 124 H Calcium 9.6 - ABG Interpretation ABG results: PT/INR, D-dimer PT 12.2 Seconds (9.4-12.1) H 04/29/18 00:51 - Attending Attestation I examined this patient and my medical decision-making was reviewed with the Resident Physician Dr. Lin. I agree with the documented findings, disposition and treatment plan as described except to the extent set forth below. Ms. Clemens is a 88 year old female with a history of COPD, CAD, CHF status post pacer , P. A. fib on Coumadin who presents with recurrent falls and failure to thrive at home. She had a fall at home since then pt is c/o hip pain. Her Ct of Pelvis showed no acute fracture, however she does have a lot suspected intramuscular hematoma at the interface of the left piecteneus and the left adductor muscles. Pt is alert, awake and O x3. denied any CP / SOB. Hip pain is tolerable with meds Gen: A, A, O x 3 Chest: Diminished BS b/l Heart: S1S2+ Ext: Improving swelling over left thig posteriorly a/p 1. Acute left leg intra muscular hematoma due to fall stable Hb d/c Coumadin PT/ OT eval transfer to ECF when medically stable
[2018-04-30 02:10] LABS: Basophils # 0.1 K/mcL (0.0-0.2); Basophils % 0.5 %; Eosinophils # 0.3 K/mcL (0.0-0.6); Eosinophils % 2.6 %; Hematocrit 35.5 % (35.3-44.9); Hemoglobin 11.6 g/dL (11.5-15.4); Immature Granulocytes % 0.4 % (0-4); Lymphocytes % 38.2 %; Mean Corpuscular HGB Conc 32.7 g/dL (31.6-35.5); Mean Corpuscular Hemoglobin 30.7 pg (28.0-33.3); Mean Corpuscular Volume 93.9 fL (83.0-100.0); Mean Platelet Volume 11.2 fL (9.4-12.4); Monocytes # 0.9 K/mcL (0.0-1.3); Monocytes % 8.1 %; Neutrophils # 5.3 K/mcL (1.6-8.9); Platelet Count 469 K/mcL (140-400); Red Blood Count 3.78 M/mcL (3.82-4.97); Red Cell Distribution Width 14.8 % (11.5-14.5); Segmented Neutrophils % 50.2 %
[2018-04-30 02:28] LABS: Blood Urea Nitrogen 25 mg/dL (8-23); Carbon Dioxide 24 mEq/L (23-29); Chloride 109 mEq/L (98-107); Potassium 4.7 mEq/L (3.5-5.1); Sodium 138 mEq/L (136-145)
[2018-04-30 02:29] LABS: BUN/Creatinine Ratio 27 (6-26); Glucose 104 mg/dL (70-105); Osmolality,Calculated 291 (280-300); eGFR For African Americans > 60 (> 60); eGFR For Non-African Americans 58 (> 60)
[2018-04-30] MEDS: Aspirin Enteric Coated 81 MG Tablet PO SCH (09:47)
[2018-04-30] MEDS: (Roflumilast [Daliresp] 500 MCG) PO SCH (09:52)
[2018-04-30] MEDS: Budesonide/Formoterol 160/4.5 MDI IH SCH ×2 (10:54→20:15)
--- NOTE | 2018-04-30 13:15 | Internal Med Progress Note ---
<Moncho Reddy - Last Filed: 04/30/18 14:05> Date of Encounter: 04/30/18 Time of Encounter: 09:20 - Assessment and plan (1) Atrial fibrillation Current Visit: No Status: Chronic Assessment and plan: Paroxymal Afib rate controlled with Metoprolol Held/discontinued warfarin due to hematoma She is not a good/safe candidate for anti coagulation with Coumadin with her multiple falls. Plan to discontinue and have patient follow up with PCP. Risk of discontinuation discussed with patient and family by attending. Dispo: Patient accepted to [facility], planning for discharge to rehab tomorrow. Family aware of anticipated plan. Qualifiers: Atrial fibrillation type: paroxysmal Qualified Code(s): I48.0 - Paroxysmal atrial fibrillation (2) Cardiomyopathy Current Visit: No Status: Chronic Assessment and plan: resumed all home meds Qualifiers: Cardiomyopathy type: other Qualified Code(s): I42.8 - Other cardiomyopathies (3) Intramuscular hematoma Current Visit: Yes Status: Acute Assessment and plan: hold/discontinued coumadin tranding H/H- has been stable PT / INR 1.1 yesterday Already received vitamin K during admission Patient does need to stay in the hospital more than 2 midnights due to her complex medical problems and close monitoring her labs due to the Coumadin. (4) COPD (chronic obstructive pulmonary disease) Current Visit: Yes Status: Acute Assessment and plan: chronic Not in exacerbation continue supplemental oxygen as needed stable and will continue home inhaler regimen Qualifiers: COPD type: unspecified COPD Qualified Code(s): J44.9 - Chronic obstructive pulmonary disease, unspecified (5) Muscle tear Current Visit: Yes Status: Acute Assessment and plan: conservative management Ortho evaluated the pt, did not recommend any surgical interventions now PT/OT for placement- rehab needed (6) Debility Current Visit: Yes Status: Acute Assessment and plan: age related with recurrent fall PT/OT for placement- rehab needed (7) Protein-calorie malnutrition, severe Current Visit: Yes Status: Acute Assessment and plan: concerning for severe PCM pre albumin low at 13.1 [employer] consulted-added ensure - Time Spent With Patient Total time spent is greater than 50% in coordination of care (as documented) at patient's floor/unit and/or counseling patient: - Subjective Interval history: Patient seen and examined sitting in bedside chair. No acute distress. Notes the food is good, but its too much food. She notes the L thigh pain ontinues to improve. No chest pain, shortness of breath, nausea, or vomiting. She is wondering where she will be accepted to for rehab. - Constitutional Vitals: Temp Pulse Resp BP Pulse Ox 97.9 F 77 18 101/57 97 04/30/18 07:07 04/30/18 07:07 04/30/18 10:55 04/30/18 07:07 04/30/18 10:55 General appearance: Present: cooperative, A&O X 3, no acute distress, answers questions appropriately - Head Head exam: Present: atraumatic, normal inspection, normocephalic - Eye Eye exam: Present: sclera anicteric - ENT ENT exam: Present: mucous membranes moist - Neck Neck exam general surgery: Present: normal inspection, supple - Respiratory Respiratory exam: Present: decreased breath sounds, CTAB. Absent: respiratory distress, rhonchi, wheezes - Cardiovascular Cardiovascular exam: Present: RRR, +S1, +S2. Absent: diastolic murmur, systolic murmur - GI/Abdominal GI/Abdominal exam: Present: normal bowel sounds, soft. Absent: firm, guarding, tenderness - Extremities Exam Extremities exam: Present: tenderness (mildly tender to palpation of L posterior thigh, swelling improving.), warm. Absent: pedal edema - Neurological Exam Neurological exam: Present: alert, oriented X3, no focal deficits. Absent: speech deficit - Psychiatric Psychiatric exam: Present: normal affect, normal mood - Skin Skin exam: Present: intact, normal color, warm. Absent: cyanosis, rash Internal Medicine: Result - Labs CBC & Chem 7: 04/30/18 01:45 04/30/18 01:45 Labs: Short CBC 04/30/18 Range/Units 01:45 WBC 10.5 (4.3-11.1) K/mcL Hgb 11.6 (11.5-15.4) g/dL Hct 35.5 (35.3-44.9) % Plt Count 469 H (140-400) K/mcL Neutrophils # 5.3 (1.6-8.9) K/mcL BMP 04/30/18 01:45 Sodium 138 Potassium 4.7 Chloride 109 H Carbon Dioxide 24 BUN 25 H Creatinine 0.92 Glucose 104 Calcium 10.0 - ABG Interpretation ABG results: PT/INR, D-dimer PT 12.2 Seconds (9.4-12.1) H 04/29/18 00:51 - VTE Documentation of Mechanical Device: Intermittent pneumatic compression device Consult Discharge Plan - Plan Referrals: Behzad Jurado MD [Primary Care Provider] - <Shaista Solis - Last Filed: 04/30/18 14:48> Date of Encounter: 04/30/18 - Assessment and plan (1) Atrial fibrillation Current Visit: No Status: Chronic Qualifiers: Atrial fibrillation type: paroxysmal Qualified Code(s): I48.0 - Paroxysmal atrial fibrillation (2) Cardiomyopathy Current Visit: No Status: Chronic Qualifiers: Cardiomyopathy type: other Qualified Code(s): I42.8 - Other cardiomyopathies (3) Intramuscular hematoma Current Visit: Yes Status: Acute (4) COPD (chronic obstructive pulmonary disease) Current Visit: Yes Status: Acute Qualifiers: COPD type: unspecified COPD Qualified Code(s): J44.9 - Chronic obstructive pulmonary disease, unspecified (5) Muscle tear Current Visit: Yes Status: Acute (6) Debility Current Visit: Yes Status: Acute (7) Protein-calorie malnutrition, severe Current Visit: Yes Status: Acute - Time Spent With Patient Total time spent is greater than 50% in coordination of care (as documented) at patient's floor/unit and/or counseling patient: - Constitutional Vitals: Temp Pulse Resp BP Pulse Ox 97.9 F 77 18 101/57 97 04/30/18 07:07 04/30/18 07:07 04/30/18 10:55 04/30/18 07:07 04/30/18 10:55 Internal Medicine: Result - Labs CBC & Chem 7: 04/30/18 01:45 04/30/18 01:45 Labs: Short CBC 04/30/18 Range/Units 01:45 WBC 10.5 (4.3-11.1) K/mcL Hgb 11.6 (11.5-15.4) g/dL Hct 35.5 (35.3-44.9) % Plt Count 469 H (140-400) K/mcL Neutrophils # 5.3 (1.6-8.9) K/mcL BMP 04/30/18 01:45 Sodium 138 Potassium 4.7 Chloride 109 H Carbon Dioxide 24 BUN 25 H Creatinine 0.92 Glucose 104 Calcium 10.0 - ABG Interpretation ABG results: PT/INR, D-dimer PT 12.2 Seconds (9.4-12.1) H 04/29/18 00:51 - Attending Attestation I examined this patient and my medical decision-making was reviewed with the Resident Physician Dr. Lin. I agree with the documented findings, disposition and treatment plan as described except to the extent set forth below. Ms. Clemens is a 88 year old female with a history of COPD, CAD, CHF status post pacer , P. A. fib on Coumadin who presents with recurrent falls and failure to thrive at home. She had a fall at home since then pt is c/o hip pain. Her Ct of Pelvis showed no acute fracture, however she does have a lot suspected intramuscular hematoma at the interface of the left pecteneus and the left adductor muscles. Pt is alert, awake and O x3. denied any CP / SOB. Hip pain is tolerable with meds Gen: A, A, O x 3 Chest: Diminished BS b/l Heart: S1S2+ Ext: Improving swelling over left thig posteriorly a/p 1. Acute left leg intra muscular hematoma due to fall stable Hb d/c Coumadin PT/ OT eval transfer to F in AM
[2018-04-30] MEDS: *HR* HYDROcodone/Acet 5/325 mg TABLET PO PRN (18:35)
[2018-05-01 01:49] LABS: Basophils # 0.1 K/mcL (0.0-0.2); Basophils % 0.5 %; Eosinophils # 0.3 K/mcL (0.0-0.6); Eosinophils % 2.8 %; Hematocrit 36.5 % (35.3-44.9); Hemoglobin 11.9 g/dL (11.5-15.4); Immature Granulocytes % 0.3 % (0-4); Lymphocytes % 43.6 %; Mean Corpuscular HGB Conc 32.6 g/dL (31.6-35.5); Mean Corpuscular Hemoglobin 30.9 pg (28.0-33.3); Mean Corpuscular Volume 94.8 fL (83.0-100.0); Mean Platelet Volume 11.5 fL (9.4-12.4); Monocytes # 0.7 K/mcL (0.0-1.3); Monocytes % 7.6 %; Neutrophils # 4.2 K/mcL (1.6-8.9); Platelet Count 485 K/mcL (140-400); Red Blood Count 3.85 M/mcL (3.82-4.97); Red Cell Distribution Width 14.7 % (11.5-14.5); Segmented Neutrophils % 45.2 %
[2018-05-01 02:10] LABS: BUN/Creatinine Ratio 31 (6-26); Blood Urea Nitrogen 27 mg/dL (8-23); Calcium 10.5 mg/dL (8.6-10.3); Carbon Dioxide 26 mEq/L (23-29); Chloride 108 mEq/L (98-107); Glucose 103 mg/dL (70-105); Osmolality,Calculated 293 (280-300); Potassium 4.5 mEq/L (3.5-5.1); Sodium 139 mEq/L (136-145); eGFR For African Americans > 60 (> 60); eGFR For Non-African Americans > 60 (> 60)
[2018-05-01] MEDS: Budesonide/Formoterol 160/4.5 MDI IH SCH (07:47)
[2018-05-01] MEDS: Aspirin Enteric Coated 81 MG Tablet PO SCH (08:34)
--- NOTE | 2018-05-01 10:36 | Discharge Summary ---
- NOTES TO OUTPATIENT PROVIDER Notes to Outpatient Provider: f/u with PCP in one week. f/u with Ortho Dr. Schwab in 1-2 weeks. Please use warm compressions / heating for left thigh hematoma Date of Encounter: 05/01/18 Time of Encounter: 10:33 - Discharge Diagnosis (1) Intramuscular hematoma Priority: Primary Status: Acute (2) Muscle tear Priority: Primary Status: Acute (3) Atrial fibrillation Priority: Secondary Status: Chronic Qualifiers: Atrial fibrillation type: paroxysmal Qualified Code(s): I48.0 - Paroxysmal atrial fibrillation (4) Cardiomyopathy Priority: Secondary Status: Chronic Qualifiers: Cardiomyopathy type: other Qualified Code(s): I42.8 - Other cardiomyopathies (5) COPD (chronic obstructive pulmonary disease) Priority: Secondary Status: Acute Qualifiers: COPD type: unspecified COPD Qualified Code(s): J44.9 - Chronic obstructive pulmonary disease, unspecified (6) Debility Priority: Secondary Status: Acute (7) Protein-calorie malnutrition, severe Priority: Secondary Status: Acute (8) Chronic respiratory failure with hypoxia, on home O2 therapy Priority: Secondary Status: Chronic Hospital course: Ms. Clemens is a 88 year old female with a history of COPD, CAD, CHF status post pacer , P. A. fib on Coumadin who presents with recurrent falls and failure to thrive at home. She had a fall at home since then pt is c/o hip pain. Her Ct of Pelvis showed no acute fracture, however she does have a lot suspected intramuscular hematoma at the interface of the left pecteneus and the left adductor muscles. Started warm compressions and supportive care. Also d/c her Coumadin. Her Hb stable @ 11.9. She is high risk for fall ns bleed, so talked to the family about stopping Coumadin continuously. Pt is alert, awake and O x3. denied any CP / SOB. Hip pain is tolerable with meds. Pt was evaluated by PT / OT who recommend ECF placement. So will d/c her to ECF in stable condition today. - Time Spent with Patient Total time spent providing and/or coordinating discharge services: - Discharge Medications Prescriptions: HYDROcodone/Acet 5/325 mg [[place] 5-325 mg] 1 tab PO Q6H PRN 5 Days #15 tablet PRN Reason: Pain Home Medications: Aspirin [Lo-Dose Aspirin EC] 81 mg PO DAILY 04/28/18 [History] Budesonide/Formoterol 160/4.5 [Symbicort 160/4.5] 2 puff IH BIDR 04/28/18 [ History] Lisinopril 2.5 mg PO DAILY 04/28/18 [History] Metoprolol [Lopressor] 25 mg PO BID 04/28/18 [History] Roflumilast [Daliresp] 500 mcg PO DAILY 04/28/18 [History] Sertraline [Zoloft] 50 mg PO DAILY 04/28/18 [History] Furosemide [Lasix] 20 mg PO DAILY #0 05/01/18 [Rx] HYDROcodone/Acet 5/325 mg [[place] 5-325 mg] 1 tab PO Q6H PRN 5 Days #15 tablet [Rx] Allergies/Adverse Reactions: 3 Allergy/AdvReac Type Severity Reaction Status Date / Time latex Allergy Rash Verified 06/19/15 22:45 Penicillins Allergy Hives Verified 06/19/15 14:31 Date of admission: 04/28/18 14:04 Primary care physician: Behzad Jurado MD Consults: 04/30/18 08:24 Consult to [facility] [CONS] Routine Reason for SW Consult: discharge planning. - Constitutional Vitals: Temp Pulse Resp BP Pulse Ox 97.9 F 73 18 117/77 99 05/01/18 06:41 05/01/18 06:41 05/01/18 07:48 05/01/18 06:41 05/01/18 07:48 General appearance: Present: cooperative, A&O X 3, no acute distress, answers questions appropriately - Head Head exam: Present: atraumatic, normal inspection - Neck Neck exam general surgery: Present: supple - Respiratory Respiratory exam: Present: decreased breath sounds. Absent: rales, respiratory distress, rhonchi, wheezes - Cardiovascular Cardiovascular exam: Present: RRR, +S1, +S2. Absent: tachycardia - GI/Abdominal GI/Abdominal exam: Present: normal bowel sounds, soft. Absent: rebound, rigid, tenderness - Extremities Exam Extremities exam: Present: pedal edema, tenderness (Left thigh). Absent: calf tenderness Additional comments: Improving swelling and tenderness in left thigh - Back Exam Back exam: Absent: CVA tenderness (L), CVA tenderness (R) - Neurological Exam Neurological exam: Present: alert, oriented X3 - Psychiatric Psychiatric exam: Present: normal affect, normal mood - Patient Status Disposition: Transfer SNF Condition: Good Overall status at discharge: patient is back to baseline - Discharge Instructions Follow Up With: Behzad Jurado MD [Primary Care Provider] - Andreas Loja MD [Partnered Physician] - - Diet and Activity Activity: as per physical therapy, increase activity as tolerated, wear oxygen at all times Diet: low salt diet - VTE Documentation of Mechanical Device: Intermittent pneumatic compression device
--- NOTE | 2018-05-01 10:40 | Physician Discharge Referral ---
ExtendedCare Referral Info Transfer To: [facility] Provider in Charge after Transfer: PCP Institutional Level of Care: Skilled - Diagnosis (1) Intramuscular hematoma Status: Acute (2) Muscle tear Status: Acute (3) Atrial fibrillation Status: Chronic (4) Cardiomyopathy Status: Chronic (5) COPD (chronic obstructive pulmonary disease) Status: Acute (6) Debility Status: Acute (7) Protein-calorie malnutrition, severe Status: Acute (8) Chronic respiratory failure with hypoxia, on home O2 therapy Status: Chronic - Transfer Medications Prescriptions: HYDROcodone/Acet 5/325 mg [[place] 5-325 mg] 1 tab PO Q6H PRN 5 Days #15 tablet PRN Reason: Pain Home Medications: Aspirin [Lo-Dose Aspirin EC] 81 mg PO DAILY 04/28/18 [History] Budesonide/Formoterol 160/4.5 [Symbicort 160/4.5] 2 puff IH BIDR 04/28/18 [ History] Lisinopril 2.5 mg PO DAILY 04/28/18 [History] Metoprolol [Lopressor] 25 mg PO BID 04/28/18 [History] Roflumilast [Daliresp] 500 mcg PO DAILY 04/28/18 [History] Sertraline [Zoloft] 50 mg PO DAILY 04/28/18 [History] Furosemide [Lasix] 20 mg PO DAILY #0 05/01/18 [Rx] HYDROcodone/Acet 5/325 mg [[place] 5-325 mg] 1 tab PO Q6H PRN 5 Days #15 tablet [Rx] Allergies/Adverse Reactions: 3 Allergy/AdvReac Type Severity Reaction Status Date / Time latex Allergy Rash Verified 06/19/15 22:45 Penicillins Allergy Hives Verified 06/19/15 14:31 - Respiratory Orders Smoking Cessation: Smoking cessation has been advised. For more information, call the [place] Tobacco Quit Line at 2-188-XECP-NOW. CERTIFICATION: I certify that the transfer of the above named patient to an Extended Care Facility is necessary for the continuing treatment of the diagnosis listed. The above information is true and accurate reflection of patient's current condition. Confidential - Redisclosure prohibited without a patient's written consent.
[2018-05-01 10:59] VITALS: BP 106/63
[2018-05-01] MEDS: *HR* HYDROcodone/Acet 5/325 mg TABLET PO PRN (11:11)
== END 2018-05-01 12:55 | DRG 604 ==
LOC: EMEROO 11:57 → 3NENU 11:57
PROVIDERS: ADMIT Family Medicine; ATTEND Family Medicine

== ENCOUNTER 2021-05-28 07:14 | Observation (INO) ==
[2021-05-28 07:50] LABS: Basophils % 0.3 %; Eosinophils # 0.2 K/mcL (0.0-0.6); Eosinophils % 1.8 %; Hematocrit 37.9 % (35.3-44.9); Hemoglobin 12.1 g/dL (11.5-15.4); Immature Granulocytes % 0.3 % (0-4); Lymphocytes # 2.9 K/mcL (0.6-4.6); Lymphocytes % 24.7 %; Mean Corpuscular HGB Conc 31.9 g/dL (31.6-35.5); Mean Corpuscular Hemoglobin 30.5 pg (28.0-33.3); Mean Corpuscular Volume 95.5 fL (83.0-100.0); Mean Platelet Volume 12.1 fL (9.4-12.4); Monocytes # 0.7 K/mcL (0.0-1.3); Monocytes % 6.1 %; Platelet Count 292 K/mcL (140-400); Red Blood Count 3.97 M/mcL (3.82-4.97); Red Cell Distribution Width 14.6 % (11.5-14.5); Segmented Neutrophils % 66.8 %; White Blood Count 11.9 K/mcL (4.3-11.1)
[2021-05-28 08:12] LABS: Albumin 3.9 g/dL (3.5-5.7); Albumin/Globulin Ratio 1.7 (1.1-2.2); Calcium 10.4 mg/dL (8.6-10.3); Globulin 2.3 g/dL (2.4-3.5); Potassium 3.3 mEq/L (3.5-5.1); Total Protein 6.2 g/dL (6.4-8.9); Troponin I 0.03 ng/mL (< 0.04)
[2021-05-28 08:14] LABS: Prothrombin Time 11.7 Seconds (9.4-12.1)
[2021-05-28 08:17] LABS: Activated Partial Thrombo Time 30.8 Seconds (26.0-36.0)
[2021-05-28 08:25] LABS: Thyroid Stimulating Hormone 1.073 mcIU/mL (0.340-5.600)
[2021-05-28] MEDS ORDERED: Furosemide 40 MG in 0.9 % Sodium Chloride 50 ML IV ONE (08:45)
[2021-05-28] MEDS ORDERED: Potassium Chloride Elixir 20 MEQ/15 ML UDC PO ONE (08:54)
[2021-05-28] MEDS ORDERED: Furosemide 100 MG/10 ML VIAL IVP ONE (09:00)
[2021-05-28] MEDS ORDERED: Naloxone 0.4 MG/ML INJ IVP PRN (09:28)
[2021-05-28] MEDS ORDERED: Ondansetron 4 MG/2 ML VIAL IVP PRN (09:28)
[2021-05-28] MEDS ORDERED: Perflutren Lipid Microsphere 1.3 ML in 0.9 % Sodium Chloride 8.7 ML IVP PRN (09:30)
[2021-05-28 12:50] LABS: Bilirubin,Urine Negative (Negative); Blood,Urine Negative (Negative); Clarity,Urine Clear (Clear); Color,Urine Colorless (Yellow); Glucose,Urine (UA) Normal (Normal); Ketones,Urine Negative (Negative); Leukocyte Esterase,Urine Negative (Negative); Nitrite,Urine Negative (Negative); PH,Urine 6.5 pH Units (5.0-8.0); Protein,Urine Trace mg/dL (Neg-Trace); Specific Gravity,Urine 1.008 (1.010-1.025); Urobilinogen,Urine Normal (Normal)
[2021-05-28] MEDS ORDERED: *HR* Metoprolol 5 MG/5 ML VIAL IVP PRN (14:36)
[2021-05-28] MEDS ORDERED: *HR* Metoprolol 5 MG/5 ML VIAL IVP ONE (14:38)
[2021-05-28] MEDS: lisinopriL 5 MG TABLET PO SCH (17:22)
[2021-05-28] MEDS: *HR* Heparin 5,000 UNIT/ML VIAL SQ SCH (17:22)
[2021-05-28] MEDS: ALPRAZolam 0.5 MG TABLET PO PRN (17:22)
[2021-05-28] MEDS: Budesonide/Formoterol 160/4.5 1 PUFF INH IH SCH (20:16)
[2021-05-28] MEDS: Furosemide 20 MG/2 ML VIAL IVP SCH (20:58)
[2021-05-28] MEDS ORDERED: Furosemide 40 MG/4 ML VIAL IVP SCH (21:00)
[2021-05-29] MEDS: *HR* Heparin 5,000 UNIT/ML VIAL SQ SCH ×2 (05:04→16:23)
[2021-05-29 05:13] LABS: Basophils % 0.3 %; Eosinophils # 0.1 K/mcL (0.0-0.6); Eosinophils % 1.3 %; Hematocrit 35.2 % (35.3-44.9); Hemoglobin 11.6 g/dL (11.5-15.4); Immature Granulocytes % 0.2 % (0-4); Lymphocytes # 2.6 K/mcL (0.6-4.6); Lymphocytes % 27.2 %; Mean Corpuscular Hemoglobin 31.2 pg (28.0-33.3); Mean Corpuscular Volume 94.6 fL (83.0-100.0); Mean Platelet Volume 12.9 fL (9.4-12.4); Monocytes % 10.2 %; Neutrophils # 5.8 K/mcL (1.6-8.9); Platelet Count 264 K/mcL (140-400); Red Blood Count 3.72 M/mcL (3.82-4.97); Red Cell Distribution Width 14.9 % (11.5-14.5); Segmented Neutrophils % 60.8 %; White Blood Count 9.5 K/mcL (4.3-11.1)
[2021-05-29 05:27] LABS: BUN/Creatinine Ratio 25 (6-26); Blood Urea Nitrogen 26 mg/dL (8-23); Calcium 9.9 mg/dL (8.6-10.3); Carbon Dioxide 30 mEq/L (23-29); Chloride 106 mEq/L (98-107); Glucose 85 mg/dL (70-105); Magnesium 1.9 mg/dL (1.6-2.6); Osmolality,Calculated 300 (280-300); Potassium 3.9 mEq/L (3.5-5.1); Sodium 143 mEq/L (136-145); eGFR For African Americans > 60 (> 60); eGFR For Non-African Americans 51 (> 60)
[2021-05-29] MEDS: Budesonide/Formoterol 160/4.5 1 PUFF INH IH SCH ×2 (07:47→19:59)
[2021-05-29] MEDS: Aspirin Enteric Coated 81 MG Tablet PO SCH (08:50)
[2021-05-29] MEDS: Furosemide 20 MG/2 ML VIAL IVP SCH ×2 (08:50→20:34)
[2021-05-30 05:38] LABS: Hemoglobin 12.1 g/dL (11.5-15.4); Mean Corpuscular HGB Conc 32.7 g/dL (31.6-35.5); Mean Corpuscular Hemoglobin 30.9 pg (28.0-33.3); Mean Corpuscular Volume 94.6 fL (83.0-100.0); Mean Platelet Volume 12.5 fL (9.4-12.4); Platelet Count 288 K/mcL (140-400); Red Blood Count 3.91 M/mcL (3.82-4.97); Red Cell Distribution Width 14.6 % (11.5-14.5); White Blood Count 10.2 K/mcL (4.3-11.1)
[2021-05-30] MEDS: *HR* Heparin 5,000 UNIT/ML VIAL SQ SCH ×2 (05:45→17:15)
[2021-05-30 05:54] LABS: BUN/Creatinine Ratio 27 (6-26); Blood Urea Nitrogen 27 mg/dL (8-23); Calcium 9.8 mg/dL (8.6-10.3); Carbon Dioxide 32 mEq/L (23-29); Chloride 104 mEq/L (98-107); Glucose 92 mg/dL (70-105); Osmolality,Calculated 297 (280-300); Potassium 3.5 mEq/L (3.5-5.1); Sodium 141 mEq/L (136-145); eGFR For African Americans > 60 (> 60); eGFR For Non-African Americans 52 (> 60)
[2021-05-30] MEDS: Budesonide/Formoterol 160/4.5 1 PUFF INH IH SCH ×2 (07:37→21:41)
[2021-05-30] MEDS: Furosemide 20 MG/2 ML VIAL IVP SCH (08:25)
[2021-05-30] MEDS: Aspirin Enteric Coated 81 MG Tablet PO SCH (08:25)
[2021-05-30] MEDS: (Roflumilast [Daliresp] 500 MCG Tablet) PO SCH (08:26)
[2021-05-30] MEDS: lisinopriL 5 MG TABLET PO SCH (17:11)
[2021-05-30] MEDS: Acetaminophen 325 MG TABLET PO PRN (18:53)
[2021-05-30] MEDS: Furosemide 20 MG TABLET PO SCH (20:52)
[2021-05-31 01:20] LABS: Hematocrit 37.4 % (35.3-44.9); Hemoglobin 11.9 g/dL (11.5-15.4); Mean Corpuscular HGB Conc 31.8 g/dL (31.6-35.5); Mean Corpuscular Hemoglobin 30.4 pg (28.0-33.3); Mean Corpuscular Volume 95.7 fL (83.0-100.0); Mean Platelet Volume 12.4 fL (9.4-12.4); Platelet Count 297 K/mcL (140-400); Red Blood Count 3.91 M/mcL (3.82-4.97); Red Cell Distribution Width 14.3 % (11.5-14.5); White Blood Count 11.1 K/mcL (4.3-11.1)
[2021-05-31 01:35] LABS: BUN/Creatinine Ratio 25 (6-26); Blood Urea Nitrogen 25 mg/dL (8-23); Calcium 9.5 mg/dL (8.6-10.3); Carbon Dioxide 29 mEq/L (23-29); Chloride 101 mEq/L (98-107); Glucose 107 mg/dL (70-105); Osmolality,Calculated 289 (280-300); Potassium 3.5 mEq/L (3.5-5.1); Sodium 137 mEq/L (136-145); eGFR For African Americans > 60 (> 60); eGFR For Non-African Americans 52 (> 60)
[2021-05-31] MEDS: Acetaminophen 325 MG TABLET PO PRN ×2 (06:10→14:46)
[2021-05-31] MEDS: *HR* Heparin 5,000 UNIT/ML VIAL SQ SCH ×2 (06:10→16:47)
[2021-05-31] MEDS: Aspirin Enteric Coated 81 MG Tablet PO SCH (08:34)
[2021-05-31] MEDS: Furosemide 20 MG TABLET PO SCH ×2 (08:35→16:47)
[2021-05-31] MEDS: (Roflumilast [Daliresp] 500 MCG Tablet) PO SCH (08:35)
[2021-05-31] MEDS: Budesonide/Formoterol 160/4.5 1 PUFF INH IH SCH ×2 (10:00→19:54)
[2021-06-01 03:12] LABS: Hematocrit 37.6 % (35.3-44.9); Mean Corpuscular HGB Conc 31.9 g/dL (31.6-35.5); Mean Corpuscular Hemoglobin 30.2 pg (28.0-33.3); Mean Corpuscular Volume 94.5 fL (83.0-100.0); Mean Platelet Volume 12.7 fL (9.4-12.4); Platelet Count 304 K/mcL (140-400); Red Blood Count 3.98 M/mcL (3.82-4.97)
[2021-06-01 03:29] LABS: BUN/Creatinine Ratio 29 (6-26); Blood Urea Nitrogen 30 mg/dL (8-23); Calcium 9.9 mg/dL (8.6-10.3); Carbon Dioxide 30 mEq/L (23-29); Chloride 102 mEq/L (98-107); Glucose 102 mg/dL (70-105); Osmolality,Calculated 294 (280-300); Potassium 3.5 mEq/L (3.5-5.1); Sodium 139 mEq/L (136-145); eGFR For African Americans > 60 (> 60); eGFR For Non-African Americans 51 (> 60)
[2021-06-01] MEDS: *HR* Heparin 5,000 UNIT/ML VIAL SQ SCH ×2 (05:41→17:36)
[2021-06-01] MEDS: Budesonide/Formoterol 160/4.5 1 PUFF INH IH SCH ×2 (07:44→20:30)
[2021-06-01] MEDS: (Roflumilast [Daliresp] 500 MCG Tablet) PO SCH (08:07)
[2021-06-01] MEDS: Furosemide 20 MG TABLET PO SCH ×2 (08:12→17:33)
[2021-06-01] MEDS: Acetaminophen 325 MG TABLET PO PRN ×2 (08:12→21:19)
[2021-06-01] MEDS: Aspirin Enteric Coated 81 MG Tablet PO SCH (08:12)
[2021-06-01 15:49] LABS: Bacteria,Urine Moderate per hpf (None-Few); Hyaline Casts,Urine Few per lpf (None Seen); Mucus,Urine Few per lpf (None-Few); Squamous Epithelial Cell,Urine Few per hpf (None-Few); WBC,Urine TNTC per hpf (0-3)
[2021-06-01 16:39] LABS: Bilirubin,Urine Negative (Negative); Blood,Urine Trace (Negative); Clarity,Urine Turbid (Clear); Color,Urine Light-Yellow (Yellow); Glucose,Urine (UA) Normal (Normal); Ketones,Urine Negative (Negative); Leukocyte Esterase,Urine Large (Negative); Nitrite,Urine Negative (Negative); Protein,Urine Negative (Neg-Trace); Specific Gravity,Urine 1.017 (1.010-1.025); Urobilinogen,Urine Normal (Normal)
[2021-06-01] MEDS: lisinopriL 5 MG TABLET PO SCH (17:33)
[2021-06-01] MEDS ORDERED: cefTRIAXone 1,000 MG in Water for inj. (sterile) 10 ML IVP SCH (18:00)
[2021-06-01] MEDS: cephALEXin 500 MG CAPSULE PO SCH (21:19)
[2021-06-01] MEDS ORDERED: *HR* LORazepam 2 MG/ML VIAL IVP STA (21:38)
[2021-06-01] MEDS ORDERED: *HR* LORazepam 2 MG/ML VIAL IM STA (21:44)
[2021-06-01] MEDS ORDERED: *HR* LORazepam 2 MG/ML VIAL IM ONE (23:59)
[2021-06-02] MEDS: cephALEXin 500 MG CAPSULE PO SCH ×3 (02:58→21:09)
[2021-06-02] MEDS: Budesonide/Formoterol 160/4.5 1 PUFF INH IH SCH ×2 (07:48→20:06)
[2021-06-02] MEDS: Furosemide 20 MG TABLET PO SCH ×2 (10:14→17:34)
[2021-06-02] MEDS: Aspirin Enteric Coated 81 MG Tablet PO SCH (10:14)
[2021-06-02] MEDS: *HR* Heparin 5,000 UNIT/ML VIAL SQ SCH ×2 (10:14→17:34)
[2021-06-02] MEDS: Metoprolol XL (24 HR) Succ 50 MG TAB.ER.24H PO SCH (10:14)
[2021-06-03] MEDS: Budesonide/Formoterol 160/4.5 1 PUFF INH IH SCH ×2 (07:32→20:20)
[2021-06-03] MEDS: cephALEXin 500 MG CAPSULE PO SCH ×2 (08:27→20:01)
[2021-06-03] MEDS: Metoprolol XL (24 HR) Succ 50 MG TAB.ER.24H PO SCH (08:27)
[2021-06-03] MEDS: Furosemide 20 MG TABLET PO SCH ×2 (08:27→16:36)
[2021-06-03] MEDS: *HR* Heparin 5,000 UNIT/ML VIAL SQ SCH ×2 (08:27→16:36)
[2021-06-03] MEDS: Aspirin Enteric Coated 81 MG Tablet PO SCH (08:27)
[2021-06-03] MEDS: lisinopriL 5 MG TABLET PO SCH (16:36)
[2021-06-04 01:47] LABS: Hematocrit 37.9 % (35.3-44.9); Hemoglobin 12.4 g/dL (11.5-15.4); Mean Corpuscular HGB Conc 32.7 g/dL (31.6-35.5); Mean Corpuscular Hemoglobin 30.8 pg (28.0-33.3); Mean Platelet Volume 12.6 fL (9.4-12.4); Platelet Count 355 K/mcL (140-400); Red Blood Count 4.03 M/mcL (3.82-4.97); Red Cell Distribution Width 14.4 % (11.5-14.5); White Blood Count 8.3 K/mcL (4.3-11.1)
[2021-06-04 01:59] LABS: Calcium 9.9 mg/dL (8.6-10.3); Potassium 3.7 mEq/L (3.5-5.1)
[2021-06-04] MEDS: *HR* Heparin 5,000 UNIT/ML VIAL SQ SCH ×2 (05:42→16:30)
[2021-06-04] MEDS: Budesonide/Formoterol 160/4.5 1 PUFF INH IH SCH ×2 (07:35→20:17)
[2021-06-04] MEDS: Furosemide 20 MG TABLET PO SCH ×2 (08:21→16:30)
[2021-06-04] MEDS: Aspirin Enteric Coated 81 MG Tablet PO SCH (08:21)
[2021-06-04] MEDS: cephALEXin 500 MG CAPSULE PO SCH ×2 (08:21→20:43)
[2021-06-04] MEDS: Metoprolol XL (24 HR) Succ 50 MG TAB.ER.24H PO SCH (08:21)
[2021-06-04] MEDS: Acetaminophen 325 MG TABLET PO PRN (21:42)
[2021-06-05] MEDS: ALPRAZolam 0.5 MG TABLET PO PRN ×2 (03:15→20:34)
[2021-06-05] MEDS: *HR* Heparin 5,000 UNIT/ML VIAL SQ SCH ×2 (05:21→16:44)
[2021-06-05] MEDS: Aspirin Enteric Coated 81 MG Tablet PO SCH (08:48)
[2021-06-05] MEDS: Metoprolol XL (24 HR) Succ 50 MG TAB.ER.24H PO SCH (08:48)
[2021-06-05] MEDS: Furosemide 20 MG TABLET PO SCH ×2 (08:49→16:44)
[2021-06-05] MEDS: cephALEXin 500 MG CAPSULE PO SCH ×2 (08:49→20:34)
[2021-06-05] MEDS: Budesonide/Formoterol 160/4.5 1 PUFF INH IH SCH ×2 (09:33→20:13)
[2021-06-05] MEDS: lisinopriL 5 MG TABLET PO SCH (16:44)
[2021-06-06] MEDS: *HR* Heparin 5,000 UNIT/ML VIAL SQ SCH ×2 (05:07→17:48)
[2021-06-06] MEDS: Budesonide/Formoterol 160/4.5 1 PUFF INH IH SCH ×2 (07:53→20:16)
[2021-06-06] MEDS: Aspirin Enteric Coated 81 MG Tablet PO SCH (10:25)
[2021-06-06] MEDS: cephALEXin 500 MG CAPSULE PO SCH ×2 (10:25→19:52)
[2021-06-06] MEDS: Acetaminophen 325 MG TABLET PO PRN (10:26)
[2021-06-06] MEDS: Metoprolol XL (24 HR) Succ 50 MG TAB.ER.24H PO SCH (10:26)
[2021-06-06] MEDS: Furosemide 20 MG TABLET PO SCH ×2 (10:26→17:47)
[2021-06-07 02:20] LABS: Hematocrit 38.2 % (35.3-44.9); Hemoglobin 12.1 g/dL (11.5-15.4); Mean Corpuscular HGB Conc 31.7 g/dL (31.6-35.5); Mean Corpuscular Hemoglobin 30.5 pg (28.0-33.3); Mean Corpuscular Volume 96.2 fL (83.0-100.0); Mean Platelet Volume 12.2 fL (9.4-12.4); Platelet Count 369 K/mcL (140-400); Red Blood Count 3.97 M/mcL (3.82-4.97); Red Cell Distribution Width 14.1 % (11.5-14.5); White Blood Count 9.8 K/mcL (4.3-11.1)
[2021-06-07 02:38] LABS: Calcium 9.6 mg/dL (8.6-10.3); Magnesium 1.9 mg/dL (1.6-2.6); Potassium 3.8 mEq/L (3.5-5.1)
[2021-06-07] MEDS: *HR* Heparin 5,000 UNIT/ML VIAL SQ SCH ×2 (04:42→17:14)
[2021-06-07] MEDS: cephALEXin 500 MG CAPSULE PO SCH (09:43)
[2021-06-07] MEDS: Furosemide 20 MG TABLET PO SCH ×2 (09:43→17:13)
[2021-06-07] MEDS: Metoprolol XL (24 HR) Succ 50 MG TAB.ER.24H PO SCH (09:43)
[2021-06-07] MEDS: Aspirin Enteric Coated 81 MG Tablet PO SCH (09:43)
[2021-06-07] MEDS: Budesonide/Formoterol 160/4.5 1 PUFF INH IH SCH (11:01)
[2021-06-07 11:16] VITALS: O2SAT 97
[2021-06-07 15:54] LABS: Adenovirus Not Detected (Not Detect); Bordetella Pertussis Not Detected (Not Detect); Chlamydophila pneumoniae Not Detected (Not Detect); Coronavirus 229E Not Detected (Not Detect); Coronavirus HKU1 Not Detected (Not Detect); Coronavirus NL63 Not Detected (Not Detect); Coronavirus OC43 Not Detected (Not Detect); Human Metapneumovirus Not Detected (Not Detect); Human Rhinovirus/Enterovirus Not Detected (Not Detect); Influenza A Subtype 2009 H1 Not Detected (Not Detect); Influenza B Not Detected (Not Detect); Mycoplasma pneumoniae Not Detected (Not Detect); Parainfluenza Virus 1 Not Detected (Not Detect); Parainfluenza Virus 2 Not Detected (Not Detect); Parainfluenza Virus 3 Not Detected (Not Detect); Parainfluenza Virus 4 Not Detected (Not Detect); Respiratory Syncytial Virus Not Detected (Not Detect); SARS-CoV-2 Not Detected (Not Detect)
[2021-06-07 16:54] VITALS: BP 113/63; PULSE 73; TEMP 98.5
[2021-06-07] MEDS: lisinopriL 5 MG TABLET PO SCH (17:13)
== END 2021-06-07 17:33 | disposition other institution (70) ==
LOC: 2ANU 07:14 → EMEROOARM 07:14 → SUATTDRO 09:32 → 2ANU 11:26 → SUATTDRO 05-30 12:34
PROVIDERS: ADMIT Pharmacist; ATTEND Internal Medicine

== ENCOUNTER 2021-07-25 10:35 | Inpatient (IN) ==
[2021-07-25] MEDS ORDERED: *HR* Metoprolol 5 MG/5 ML VIAL IVP ONE ×3 (10:45→23:10)
[2021-07-25] MEDS ORDERED: Metoprolol XL (24 HR) Succ 50 MG TAB.ER.24H PO ONE (11:00)
[2021-07-25] MEDS ORDERED: Levalbuterol Neb 0.63 MG/3 ML IH STA (11:24)
[2021-07-25 11:57] LABS: Basophils % 0.1 %; Eosinophils # 0.1 K/mcL (0.0-0.6); Eosinophils % 1.4 %; Hematocrit 20.9 % (35.3-44.9); Hemoglobin 6.3 g/dL (11.5-15.4); Immature Granulocytes % 0.4 % (0-4); Lymphocytes # 3.7 K/mcL (0.6-4.6); Lymphocytes % 44.5 %; Mean Corpuscular HGB Conc 30.1 g/dL (31.6-35.5); Mean Corpuscular Hemoglobin 31.2 pg (28.0-33.3); Mean Corpuscular Volume 103.5 fL (83.0-100.0); Mean Platelet Volume 12.8 fL (9.4-12.4); Monocytes # 0.5 K/mcL (0.0-1.3); Monocytes % 5.6 %; Platelet Count 125 K/mcL (140-400); Red Blood Count 2.02 M/mcL (3.82-4.97); Red Cell Distribution Width 14.9 % (11.5-14.5); White Blood Count 8.4 K/mcL (4.3-11.1)
[2021-07-25 12:12] LABS: BUN/Creatinine Ratio 26 (6-26); Blood Urea Nitrogen 14 mg/dL (8-23); Calcium 4.8 mg/dL (8.6-10.3); Carbon Dioxide 15 mEq/L (23-29); Chloride 126 mEq/L (98-107); Glucose 138 mg/dL (70-105); Osmolality,Calculated 307 (280-300); Potassium 2.3 mEq/L (3.5-5.1); Sodium 147 mEq/L (136-145); Troponin I 0.03 ng/mL (< 0.04); eGFR For African Americans > 60 (> 60); eGFR For Non-African Americans > 60 (> 60)
[2021-07-25] MEDS ORDERED: Magnesium Sulfate 1 GM/102 ML PIGGYBACK IVPB ONE (12:25)
[2021-07-25] MEDS ORDERED: Potassium Chloride Elixir 20 MEQ/15 ML UDC PO STA (12:25)
[2021-07-25] MEDS ORDERED: Potassium Chloride 20 MEQ, Lidocaine 1% 2 ML in 0.9 % Sodium Chloride 250 ML IVPB ONE ×2 (12:25→13:41)
[2021-07-25 13:00] LABS: Influenza A PCR Negative (Negative); Influenza B PCR Negative (Negative); Resp. Syncytial Virus PCR Negative (Negative)
[2021-07-25 13:16] LABS: SARS-CoV-2 by PCR (In House) Negative (Negative)
[2021-07-25] MEDS ORDERED: Acetaminophen 325 MG TABLET PO PRN (13:42)
[2021-07-25] MEDS ORDERED: Ondansetron 4 MG/2 ML VIAL IVP PRN (13:42)
[2021-07-25] MEDS ORDERED: Pantoprazole 40 MG VIAL IVP ONE (13:47)
[2021-07-25 14:15] LABS: INR 1.4; Prothrombin Time 16.4 Seconds (9.4-12.1)
[2021-07-25] MEDS ORDERED: Pantoprazole 80 MG in 0.9 % Sodium Chloride 50 ML IVPB ONE (14:15)
[2021-07-25 14:35] LABS: Basophils % 0.2 %; Eosinophils % 0.1 %; Lymphocytes % 6.1 %
[2021-07-25 14:37] LABS: Hematocrit 37.3 % (35.3-44.9); Immature Granulocytes % 0.4 % (0-4); Mean Corpuscular HGB Conc 32.2 g/dL (31.6-35.5); Mean Corpuscular Hemoglobin 30.7 pg (28.0-33.3); Mean Corpuscular Volume 95.4 fL (83.0-100.0); Mean Platelet Volume 13.5 fL (9.4-12.4); Monocytes # 1.2 K/mcL (0.0-1.3); Monocytes % 6.7 %; Neutrophils # 14.8 K/mcL (1.6-8.9); Platelet Count 249 K/mcL (140-400); Red Blood Count 3.91 M/mcL (3.82-4.97); Red Cell Distribution Width 14.8 % (11.5-14.5); Segmented Neutrophils % 86.5 %; White Blood Count 17.1 K/mcL (4.3-11.1)
[2021-07-25 15:27] LABS: Magnesium 1.1 mg/dL (1.6-2.6); Phosphorous 2.9 mg/dL (2.7-4.5)
[2021-07-25 16:00] LABS: Albumin 3.8 g/dL (3.5-5.7); Albumin/Globulin Ratio 1.7 (1.1-2.2); Bilirubin,Total 1.4 mg/dL (0.3-1.0); Globulin 2.3 g/dL (2.4-3.5); Potassium 4.7 mEq/L (3.5-5.1); Total Protein 6.1 g/dL (6.4-8.9)
[2021-07-25] MEDS ORDERED: Isovue-370 500 ML BOTTLE IVP ONE (16:17)
[2021-07-25] MEDS: Ipratropium/Albuterol Neb 3 ML IH SCH ×3 (16:38→23:33)
[2021-07-25] MEDS ORDERED: Water for inj. (sterile) 20 ML IV ONE (18:16)
[2021-07-25 18:29] LABS: BUN/Creatinine Ratio 23 (6-26); Blood Urea Nitrogen 24 mg/dL (8-23); Calcium 10.3 mg/dL (8.6-10.3); Carbon Dioxide 27 mEq/L (23-29); Chloride 107 mEq/L (98-107); Glucose 114 mg/dL (70-105); Osmolality,Calculated 293 (280-300); Potassium 4.8 mEq/L (3.5-5.1); Sodium 139 mEq/L (136-145); eGFR For African Americans > 60 (> 60); eGFR For Non-African Americans 50 (> 60)
[2021-07-25] MEDS: cefTRIAXone 2,000 MG in Water for inj. (sterile) 20 ML IVP SCH (18:36)
[2021-07-25] MEDS: Furosemide 20 MG/2 ML VIAL IVP SCH ×2 (18:36→18:58)
[2021-07-25] MEDS: predniSONE 20 MG TABLET PO SCH (18:37)
[2021-07-25] MEDS: Azithromycin 500 MG in 0.9 % Sodium Chloride 250 ML IVPB SCH (18:37)
[2021-07-25] MEDS: Metoprolol XL (24 HR) Succ 50 MG TAB.ER.24H PO SCH (18:37)
[2021-07-25] MEDS ORDERED: Ipratropium/Albuterol Neb 3 ML ONE (19:59)
[2021-07-25] MEDS: Calcium Gluconate 1gm/50mL 1 GM/50 ML BAG IVPB SCH (20:32)
[2021-07-25] MEDS ORDERED: Furosemide 20 MG/2 ML VIAL IVP ONE ×2 (23:05→23:10)
[2021-07-26] MEDS ORDERED: *HR* LORazepam 2 MG/ML VIAL IVP ONE ×2 (00:58→12:22)
[2021-07-26 01:05] LABS: Campylobacter by PCR Not detected (Not detect)
[2021-07-26 01:06] LABS: Adenovirus F 40/41 PCR Not detected (Not detect); Astrovirus PCR Not detected (Not detect); C.difficile Toxin A/B Gene PCR DETECTED (Not detect); Cryptosporidium by PCR Not detected (Not detect); Cyclospora cayetanensis PCR Not detected (Not detect); E. coli O157 by PCR Not detected (Not detect); Entamoeba histolytica PCR Not detected (Not detect); Enteroaggregative E.coli(EAEC) Not detected (Not detect); Enteropathogenic E.coli(EPEC) Not detected (Not detect); Enterotoxigenic E.coli (ETEC) Not detected (Not detect); Giardia lamblia PCR Not detected (Not detect); Norovirus GI/GII PCR Not detected (Not detect); Plesiomonas shigelloides PCR Not detected (Not detect); Rotavirus A PCR Not detected (Not detect); Salmonella PCR Not detected (Not detect); Sapovirus PCR Not detected (Not detect); Shig/EnteroinvasiveE coli EIEC Not detected (Not detect); Shigalike tox-prod E coli STEC Not detected (Not detect); Vibrio PCR Not detected (Not detect); Vibrio cholerae PCR Not detected (Not detect); Yersinia enterocolitica PCR Not detected (Not detect)
[2021-07-26] MEDS ORDERED: *HR* LORazepam 2 MG/ML VIAL ONE (01:15)
[2021-07-26] MEDS: Ipratropium/Albuterol Neb 3 ML IH SCH ×6 (04:40→23:09)
[2021-07-26] MEDS ORDERED: Pantoprazole 40 MG VIAL IVP SCH (06:00)
[2021-07-26] MEDS: Vancomycin Oral Soln 125 MG/2.5 ML UDC PO SCH ×5 (06:59→20:22)
[2021-07-26 07:48] LABS: Hematocrit 35.7 % (35.3-44.9); Hemoglobin 11.5 g/dL (11.5-15.4); Immature Platelets 13.6 % (1.1-6.1); Mean Corpuscular HGB Conc 32.2 g/dL (31.6-35.5); Mean Corpuscular Hemoglobin 30.7 pg (28.0-33.3); Mean Corpuscular Volume 95.2 fL (83.0-100.0); Red Blood Count 3.75 M/mcL (3.82-4.97); Red Cell Distribution Width 14.9 % (11.5-14.5); White Blood Count 9.2 K/mcL (4.3-11.1)
[2021-07-26 08:00] LABS: Calcium 10.4 mg/dL (8.6-10.3); Magnesium 2.4 mg/dL (1.6-2.6); Phosphorous 2.8 mg/dL (2.7-4.5); Potassium 4.5 mEq/L (3.5-5.1)
[2021-07-26] MEDS: Metoprolol XL (24 HR) Succ 50 MG TAB.ER.24H PO SCH (09:28)
[2021-07-26] MEDS: Furosemide 20 MG/2 ML VIAL IVP SCH ×2 (09:28→20:22)
[2021-07-26] MEDS: predniSONE 20 MG TABLET PO SCH (09:28)
[2021-07-26] MEDS: Calcium Gluconate 1gm/50mL 1 GM/50 ML BAG IVPB SCH (16:40)
[2021-07-26] MEDS: Azithromycin 500 MG in 0.9 % Sodium Chloride 250 ML IVPB SCH (17:44)
[2021-07-26] MEDS: cefTRIAXone 2,000 MG in Water for inj. (sterile) 20 ML IVP SCH (17:45)
[2021-07-26] MEDS ORDERED: hydrOXYzine pamoate 25 MG CAPSULE PO PRN (18:01)
[2021-07-27] MEDS: Ipratropium/Albuterol Neb 3 ML IH SCH ×6 (03:38→23:59)
[2021-07-27 06:25] LABS: Red Blood Count 3.57 M/mcL (3.82-4.97)
[2021-07-27 06:27] LABS: Hematocrit 33.7 % (35.3-44.9); Immature Platelets 14.5 % (1.1-6.1); Mean Corpuscular HGB Conc 32.6 g/dL (31.6-35.5); Mean Corpuscular Hemoglobin 30.8 pg (28.0-33.3); Mean Corpuscular Volume 94.4 fL (83.0-100.0); Mean Platelet Volume 14.1 fL (9.4-12.4); Red Cell Distribution Width 15.3 % (11.5-14.5); White Blood Count 10.7 K/mcL (4.3-11.1)
[2021-07-27 06:54] LABS: Calcium 10.5 mg/dL (8.6-10.3); Potassium 4.3 mEq/L (3.5-5.1)
[2021-07-27] MEDS: Metoprolol XL (24 HR) Succ 50 MG TAB.ER.24H PO SCH (08:11)
[2021-07-27] MEDS: Doxycycline 100 MG CAPSULE PO SCH ×2 (08:11→20:34)
[2021-07-27] MEDS: Furosemide 20 MG/2 ML VIAL IVP SCH ×2 (08:12→20:34)
[2021-07-27] MEDS: Vancomycin Oral Soln 125 MG/2.5 ML UDC PO SCH ×4 (08:12→20:34)
[2021-07-27] MEDS: predniSONE 20 MG TABLET PO SCH (08:18)
[2021-07-27] MEDS: Lactobacillus 1 EACH CAP.SPRINK PO SCH (12:09)
[2021-07-27] MEDS: cefTRIAXone 2,000 MG in Water for inj. (sterile) 20 ML IVP SCH (16:44)
[2021-07-27] MEDS ORDERED: *HR* Metoprolol 5 MG/5 ML VIAL IVP ONE (17:34)
[2021-07-28] MEDS: Ipratropium/Albuterol Neb 3 ML IH SCH ×3 (02:54→10:29)
[2021-07-28] MEDS ORDERED: *HR* Metoprolol 5 MG/5 ML VIAL IVP ONE (03:14)
[2021-07-28] MEDS ORDERED: Benzonatate 100 MG CAPSULE PO ONE (03:34)
[2021-07-28 07:43] LABS: Hematocrit 34.8 % (35.3-44.9); Hemoglobin 11.5 g/dL (11.5-15.4); Immature Platelets 13.5 % (1.1-6.1); Mean Corpuscular Hemoglobin 31.2 pg (28.0-33.3); Mean Corpuscular Volume 94.3 fL (83.0-100.0); Mean Platelet Volume 13.9 fL (9.4-12.4); Red Blood Count 3.69 M/mcL (3.82-4.97); White Blood Count 11.1 K/mcL (4.3-11.1)
[2021-07-28] MEDS: Metoprolol XL (24 HR) Succ 50 MG TAB.ER.24H PO SCH (08:48)
[2021-07-28] MEDS: predniSONE 20 MG TABLET PO SCH (08:48)
[2021-07-28] MEDS: Furosemide 20 MG/2 ML VIAL IVP SCH ×2 (08:49→21:18)
[2021-07-28] MEDS: Lactobacillus 1 EACH CAP.SPRINK PO SCH (08:49)
[2021-07-28] MEDS: Doxycycline 100 MG CAPSULE PO SCH ×2 (08:49→21:18)
[2021-07-28] MEDS: Vancomycin Oral Soln 125 MG/2.5 ML UDC PO SCH ×4 (08:49→21:18)
[2021-07-28] MEDS ORDERED: Metoprolol XL (24 HR) Succ 50 MG TAB.ER.24H PO SCH (09:00)
[2021-07-28 10:55] LABS: Calcium 10.1 mg/dL (8.6-10.3); Potassium 4.2 mEq/L (3.5-5.1)
[2021-07-28] MEDS ORDERED: Metoprolol XL (24 HR) Succ 25 MG TAB.ER.24H PO ONE (11:15)
[2021-07-28] MEDS: Levalbuterol Neb 1.25 MG/3 ML IH SCH ×2 (15:19→21:54)
[2021-07-28] MEDS: cefTRIAXone 2,000 MG in Water for inj. (sterile) 20 ML IVP SCH (17:37)
[2021-07-28] MEDS: Metoprolol XL (24 HR) Succ 25 MG TAB.ER.24H PO SCH (22:34)
[2021-07-28] MEDS ORDERED: *HR* LORazepam 2 MG/ML VIAL IVP ONE (23:12)
[2021-07-29] MEDS: Levalbuterol Neb 1.25 MG/3 ML IH SCH ×4 (04:11→22:43)
[2021-07-29 08:15] LABS: Calcium 10.8 mg/dL (8.6-10.3); Potassium 4.7 mEq/L (3.5-5.1)
[2021-07-29 08:16] LABS: Hematocrit 42.2 % (35.3-44.9); Hemoglobin 13.7 g/dL (11.5-15.4); Immature Platelets 15.5 % (1.1-6.1); Mean Corpuscular HGB Conc 32.5 g/dL (31.6-35.5); Mean Corpuscular Hemoglobin 31.2 pg (28.0-33.3); Mean Corpuscular Volume 96.1 fL (83.0-100.0); Red Blood Count 4.39 M/mcL (3.82-4.97); White Blood Count 15.5 K/mcL (4.3-11.1)
[2021-07-29] MEDS: Lactobacillus 1 EACH CAP.SPRINK PO SCH (08:30)
[2021-07-29] MEDS: Metoprolol XL (24 HR) Succ 25 MG TAB.ER.24H PO SCH ×2 (08:30→21:09)
[2021-07-29] MEDS: predniSONE 10 MG TABLET PO SCH (08:30)
[2021-07-29] MEDS: Vancomycin Oral Soln 125 MG/2.5 ML UDC PO SCH ×4 (08:31→21:10)
[2021-07-29] MEDS: Doxycycline 100 MG CAPSULE PO SCH ×2 (08:31→21:09)
[2021-07-29] MEDS: Furosemide 20 MG/2 ML VIAL IVP SCH (08:33)
[2021-07-29] MEDS ORDERED: *HR* LORazepam 2 MG/ML VIAL IVP ONE (10:00)
[2021-07-29 10:14] LABS: ABG Base Excess 2 mEq/L (-2 to 3); ABG HCO3 28 mEq/L (21-27); ABG Oxygen Saturation 96 % (95-98); ABG PCO2 49 mmHg (35-45); ABG PH 7.36 pH Units (7.32-7.45); ABG PO2 84 mmHg (85-104); ABG TCO2 30 mEq/L (20-26)
[2021-07-29 12:58] LABS: Bilirubin,Urine Negative (Negative); Blood,Urine Negative (Negative); Clarity,Urine Clear (Clear); Color,Urine Colorless (Yellow); Glucose,Urine (UA) Normal (Normal); Ketones,Urine Negative (Negative); Leukocyte Esterase,Urine Negative (Negative); Nitrite,Urine Negative (Negative); Protein,Urine Trace mg/dL (Neg-Trace); Urobilinogen,Urine Normal (Normal)
[2021-07-29] MEDS ORDERED: *HR* Metoprolol 5 MG/5 ML VIAL IVP ONE (15:57)
[2021-07-29] MEDS: cefTRIAXone 2,000 MG in Water for inj. (sterile) 20 ML IVP SCH (16:18)
[2021-07-30 01:05] LABS: Hematocrit 36.4 % (35.3-44.9); Hemoglobin 12.2 g/dL (11.5-15.4); Mean Corpuscular HGB Conc 33.5 g/dL (31.6-35.5); Mean Corpuscular Hemoglobin 31.3 pg (28.0-33.3); Mean Corpuscular Volume 93.3 fL (83.0-100.0); Mean Platelet Volume 13.6 fL (9.4-12.4); Platelet Count 256 K/mcL (140-400); Red Cell Distribution Width 14.7 % (11.5-14.5); White Blood Count 10.3 K/mcL (4.3-11.1)
[2021-07-30 01:17] LABS: Calcium 10.3 mg/dL (8.6-10.3)
[2021-07-30] MEDS: Levalbuterol Neb 1.25 MG/3 ML IH SCH ×5 (03:06→22:36)
[2021-07-30] MEDS: Lactobacillus 1 EACH CAP.SPRINK PO SCH (09:37)
[2021-07-30] MEDS: Metoprolol XL (24 HR) Succ 25 MG TAB.ER.24H PO SCH ×2 (09:37→21:17)
[2021-07-30] MEDS: Doxycycline 100 MG CAPSULE PO SCH ×2 (09:37→21:17)
[2021-07-30] MEDS: predniSONE 10 MG TABLET PO SCH (09:38)
[2021-07-30] MEDS: Vancomycin Oral Soln 125 MG/2.5 ML UDC PO SCH ×4 (09:38→21:17)
[2021-07-30] MEDS ORDERED: *HR* LORazepam 0.5 MG TABLET PO ONE (11:22)
[2021-07-30] MEDS: cefTRIAXone 2,000 MG in Water for inj. (sterile) 20 ML IVP SCH (16:58)
[2021-07-30] MEDS: QUEtiapine Fumarate 25 MG TABLET PO SCH (21:17)
[2021-07-31 01:08] LABS: Hemoglobin 12.4 g/dL (11.5-15.4); Mean Corpuscular Hemoglobin 30.8 pg (28.0-33.3); Red Blood Count 4.03 M/mcL (3.82-4.97); Red Cell Distribution Width 14.6 % (11.5-14.5)
[2021-07-31 01:10] LABS: Hematocrit 37.8 % (35.3-44.9); Immature Platelets 14.8 % (1.1-6.1); Mean Corpuscular HGB Conc 32.8 g/dL (31.6-35.5); Mean Corpuscular Volume 93.8 fL (83.0-100.0); Mean Platelet Volume 13.5 fL (9.4-12.4); White Blood Count 10.7 K/mcL (4.3-11.1)
[2021-07-31 01:21] LABS: Potassium 4.2 mEq/L (3.5-5.1)
[2021-07-31] MEDS: Levalbuterol Neb 1.25 MG/3 ML IH SCH ×4 (05:18→22:13)
[2021-07-31] MEDS: predniSONE 10 MG TABLET PO SCH (08:48)
[2021-07-31] MEDS: Vancomycin Oral Soln 125 MG/2.5 ML UDC PO SCH ×4 (08:48→21:36)
[2021-07-31] MEDS: Lactobacillus 1 EACH CAP.SPRINK PO SCH (08:48)
[2021-07-31] MEDS: Doxycycline 100 MG CAPSULE PO SCH (08:49)
[2021-07-31] MEDS: Metoprolol XL (24 HR) Succ 25 MG TAB.ER.24H PO SCH ×2 (08:49→21:36)
[2021-07-31] MEDS: Furosemide 20 MG TABLET PO SCH (16:36)
[2021-07-31] MEDS: QUEtiapine Fumarate 25 MG TABLET PO SCH (21:36)
[2021-08-01] MEDS: Levalbuterol Neb 1.25 MG/3 ML IH SCH ×4 (03:29→21:24)
[2021-08-01] MEDS: Metoprolol XL (24 HR) Succ 25 MG TAB.ER.24H PO SCH ×2 (07:30→20:50)
[2021-08-01] MEDS: Lactobacillus 1 EACH CAP.SPRINK PO SCH (07:34)
[2021-08-01] MEDS: Furosemide 20 MG TABLET PO SCH ×2 (07:35→18:29)
[2021-08-01] MEDS: predniSONE 10 MG TABLET PO SCH (07:36)
[2021-08-01] MEDS: Vancomycin Oral Soln 125 MG/2.5 ML UDC PO SCH ×4 (07:37→20:50)
[2021-08-01 08:27] LABS: Basophils % 0.2 %; Eosinophils # 0.1 K/mcL (0.0-0.6); Eosinophils % 0.7 %; Hematocrit 40.2 % (35.3-44.9); Hemoglobin 13.1 g/dL (11.5-15.4); Immature Granulocytes % 0.5 % (0-4); Immature Platelets 13.1 % (1.1-6.1); Lymphocytes # 3.2 K/mcL (0.6-4.6); Lymphocytes % 27.9 %; Mean Corpuscular HGB Conc 32.6 g/dL (31.6-35.5); Mean Corpuscular Hemoglobin 30.5 pg (28.0-33.3); Mean Corpuscular Volume 93.7 fL (83.0-100.0); Mean Platelet Volume 13.6 fL (9.4-12.4); Monocytes # 0.9 K/mcL (0.0-1.3); Monocytes % 7.9 %; Neutrophils # 7.3 K/mcL (1.6-8.9); Nucleated Red Blood Cells 0.9 /100 WBC (0); Platelet Count 285 K/mcL (140-400); Red Blood Count 4.29 M/mcL (3.82-4.97); Red Cell Distribution Width 14.8 % (11.5-14.5); Segmented Neutrophils % 62.8 %; White Blood Count 11.6 K/mcL (4.3-11.1)
[2021-08-01 08:36] LABS: Calcium 10.1 mg/dL (8.6-10.3); Potassium 3.6 mEq/L (3.5-5.1)
[2021-08-01] MEDS: QUEtiapine Fumarate 25 MG TABLET PO SCH (20:50)
[2021-08-02] MEDS: Levalbuterol Neb 1.25 MG/3 ML IH SCH ×5 (04:50→21:51)
[2021-08-02 06:54] LABS: Calcium 10.3 mg/dL (8.6-10.3); Potassium 3.8 mEq/L (3.5-5.1)
[2021-08-02] MEDS: predniSONE 10 MG TABLET PO SCH (08:57)
[2021-08-02] MEDS: Lactobacillus 1 EACH CAP.SPRINK PO SCH (08:57)
[2021-08-02] MEDS: Furosemide 20 MG TABLET PO SCH ×2 (08:57→16:14)
[2021-08-02] MEDS: Metoprolol XL (24 HR) Succ 25 MG TAB.ER.24H PO SCH ×2 (08:57→20:31)
[2021-08-02] MEDS: Vancomycin Oral Soln 125 MG/2.5 ML UDC PO SCH ×4 (08:58→20:31)
[2021-08-02] MEDS: QUEtiapine Fumarate 25 MG TABLET PO SCH (20:31)
[2021-08-03] MEDS: Levalbuterol Neb 1.25 MG/3 ML IH SCH ×3 (04:38→16:15)
[2021-08-03] MEDS: Lactobacillus 1 EACH CAP.SPRINK PO SCH (08:32)
[2021-08-03] MEDS: Metoprolol XL (24 HR) Succ 25 MG TAB.ER.24H PO SCH (08:33)
[2021-08-03] MEDS: Furosemide 20 MG TABLET PO SCH (08:33)
[2021-08-03] MEDS: Vancomycin Oral Soln 125 MG/2.5 ML UDC PO SCH ×2 (08:33→12:38)
[2021-08-03] MEDS ORDERED: predniSONE 10 MG TABLET PO ONE (09:00)
[2021-08-03 15:42] VITALS: BP 105/68; PULSE 72; TEMP 97.7
[2021-08-03 16:16] VITALS: O2SAT 95
== END 2021-08-03 18:55 | disposition home health service (06) | DRG 871 ==
LOC: EMEROOARM 10:35 → CDU 10:35 → SUATTDRO 13:38 → CDU 16:21 → SUATTDRO 07-27 18:27 → 3ANU 07-28 22:04
PROVIDERS: ADMIT Internal Medicine; ATTEND Internal Medicine